=== PATIENT | female | born 1960 | race Caucasian/White ===

== ENCOUNTER → 2016-06-01 | Outpatient (CLI) | payer BC ==
[2016-06-01 10:26] LABS: Blood Urea Nitrogen 11 mg/dL (7-17); Non-African American GFR(MDRD) >60 (>60 ml/min/1.73 sqM)
--- NOTE | 2016-06-01 11:21 | CT ---
EXAMINATION TYPE: CT abdomen w con DATE OF EXAM: 06/01/2016 11:00 AM COMPARISON: Outside study from 02/21/2016 HISTORY: pancreatic CA CT DLP: 873 mGycm CONTRAST: CT scan of the abdomen is performed with Oral Contrast and with IV Contrast, patient injected with 1 00 ml mL of Omnipaque 300. FINDINGS: LUNG BASES-: No visible nodule. No infiltrate. Small hiatal hernia detected. LIVER/GB: No calcified gallstones. No space occupying hepatic lesion. Biliary tree is of normal ca liber. There is evidence for fatty liver. PANCREAS: There is continued fullness in the region of the pancreatic head and decreased attenuation relative to the remainder of the pancreas. Distinct mass is difficult to elucidate . However. Overall there is no change relative to the prior study. Pancreatic duct measures approximately 3 mm. Vascula r structures are stable. Diminutive SMV. SPLEEN: There is splenomegaly with craniocaudal measurement of 14.7 cm. No lesion seen. ADRENALS: No nodule. No thickening. KIDNEYS/BLADDER: No hydronephrosis. No nephrolithiasis. No disctinct renal mass. BOWEL: Normal appendix. Normal bowel caliber. No inflammation. LYMPH NODES: No greater than 1cm abdominal or pelvic lymph nodes are appreciated. AORTA: No significant abnormality. OSSEOUS STRUCTURES: No significant abnormality is seen. OTHER: No significant additional abnormality is seen. IMPRESSION: 1. Continued fullness and vague decreased attenuation pancreatic head with distinct mass is difficult to elucidate. Consider dedicated MRI of the pancreas for improved characterization. 2. Splenomegaly. 3. Hepatic steatosis.
== END | disposition home or self-care (01) ==
LOC: RADPROMAIN 09:53
PROVIDERS: ATTEND Internal Medicine Hematology & Oncology
DX: C25.0 Malignant neoplasm of head of pancreas (principal); K76.0 Fatty (change of) liver, not elsewhere classified; R16.1 Splenomegaly, not elsewhere classified
CPT/HCPCS: 82565; 84520; 74160; Q9967

== ENCOUNTER → 2016-07-26 | Outpatient (CLI) | payer BC ==
--- NOTE | 2016-07-27 17:02 | MR ---
MRI liver with and without contrast HISTORY: Pancreatic carcinoma Multiplanar multisequence and postcontrast images obtained through the liver following 13 cc MultiHan ce IV. Exam correlated to prior MRCP 10 August 2015, CT abdomen third May 2016 Loss of signal on out of phase imaging within the liver is compatible with fatty infiltration, the li emeka is enlarged as on previous exam. There is liver is enlarged. There is a geographical area in the periportal location, medial aspect of the inferior right lobe of the liver measuring approximately 2. 1 cm which shows less of a drop of signal than the remainder of the liver. There is no abnormal enhan cement following contrast administration. The area becomes less conspicuous on more delayed imaging f ollowing contrast administration. Vessels course through this region without apparent mass effect. The spleen is enlarged. Patient's pancreatic mass is not well seen, there is ductal dilatation distal to the region of previously identified tumor however, an indirect evidence of patient's tumor. The portal vein is patent. Low signal focus within the right lobe of the liver is a stable finding. The adrenal glands and kidneys are normal. Gallbladder is unremarkable. No retroperitoneal adenopathy . Aorta shows normal signal in diameter. No pleural effusions are ascites. There may be a small hiata l hernia. IMPRESSION: Findings within the right lobe of the liver thought likely to represent focal fatty spari ng rather than metastasis. Short interval follow-up could be performed to assess for stability or alt ernatively Eovist contrast enhanced MRI may be of benefit.
== END | disposition home or self-care (01) ==
LOC: RADMRIMAIN 17:53
PROVIDERS: ATTEND Internal Medicine Hematology & Oncology
DX: C25.0 Malignant neoplasm of head of pancreas (principal)
CPT/HCPCS: 74183; A9577

== ENCOUNTER 2017-04-15 09:15 | Day surgery (SDC) | payer BC ==
[2017-04-15 08:01] VITALS: BMI 27.4
[~2017-04-15 09:15] MED LIST: HEPARIN SODIUM,PORCINE 5,000 UNIT/ML 1 ML VIAL SQ ONE; ceFAZolin IN SWFI 2 GM/20 ML SYRINGE IVP ONE
[2017-04-15] MEDS ORDERED: SCOPOLAMINE 1.5MG/72HR PATCH TRANSDERM ONE (10:06)
[2017-04-15] MEDS ORDERED: LIDOCAINE 1% 20 ML VIAL (10MG/ML) FOR IV START INTRADERMA PRN (10:06)
[2017-04-15] MEDS ORDERED: DEXAMETHASONE SOD PHOSPHATE 10 MG/ML 1 ML VIAL IV ONE (10:06)
[2017-04-15] MEDS ORDERED: HYDROmorphone 1 MG/ML 1 ML SYRINGE IVP PRN (10:06)
[2017-04-15] MEDS ORDERED: ALPRAZolam 0.5 MG TAB PO PRN (10:06)
[2017-04-15] MEDS ORDERED: ONDANSETRON 4 MG/2 ML VIAL IVP ONE (10:06)
[2017-04-15] MEDS ORDERED: LACTATED RINGERS 1,000 ML IV SCH (10:15)
--- NOTE | 2017-04-15 10:21 | P.GSHP ---
History of Present Illness H&P Date: 04/15/17 Chief Complaint: History of pancreatic cancer [employer] 57-year-old female referred from Dr. David Douglas. Patient has a history of pancreatic cancer. Patient has a right subclavian Port-A-Cath. There has been question of infection of the Port-A-Cath. She's had some skin breakdown around the Port-A-Cath. She presents today for removal of Port-A- Cath and insertion of a new Port-A-Cath. Past Medical History Past Medical History: Cancer, COPD, Diabetes Mellitus, GERD/Reflux Additional Past Medical History / Comment(s): anxiety, Pancreatic Cancer- F5U chemo every other week Sat-Sat via port-a-cath, diabetes as a result of CA diagnosis History of Any Multi-Drug Resistant Organisms: None Reported Past Surgical History: Section Additional Past Surgical History / Comment(s): port- a cath -Right upper chest, placed 2015, recent infection, not functioning properly. Past Anesthesia/Blood Transfusion Reactions: No Reported Reaction Past Psychological History: Anxiety Smoking Status: Former smoker Past Alcohol Use History: Occasional Past Drug Use History: None Reported - Past Family History Father Family Medical History: Dementia Mother Family Medical History: Cancer, COPD, Thyroid Disorder Additional Family Medical History / Comment(s): colon ca Medications and Allergies Home Medications Medication Instructions Recorded Confirmed Type ALPRAZolam [Xanax] 0.5 mg PO Q8HR PRN 05/05/15 04/15/17 History Albuterol Sulfate [Proair Hfa] 1 - 2 puff INHALATION RT-Q6H PRN 05/05/15 History Tiotropium 18 Mcg/Puff [Spiriva] 1 cap INHALATION RT-DAILY 05/05/15 04/15/17 History Mometasone/Formoterol [Dulera 200 2 puff INHALATION DAILY 05/06/15 04/15/17 History Mcg/5 Mcg Inhaler] Omeprazole [PriLOSEC] 40 mg PO HS 05/06/15 04/15/17 History Enoxaparin [Lovenox] 120 mg SQ DAILY 04/15/17 04/15/17 History Glimepiride [Amaryl] 2 mg PO BID 04/15/17 04/15/17 History LORazepam [Ativan] 1 mg PO TID BETWEEN MEALS PRN 04/15/17 04/15/17 History Ondansetron HCl [Zofran] 8 mg PO TID PRN 04/15/17 04/15/17 History metFORMIN HCL 1,000 mg PO BID 04/15/17 04/15/17 History Allergies Allergy/AdvReac Type Severity Reaction Status Date / Time quinine Allergy Vomiting Verified 04/15/17 09:47 Surgical - Exam - General well developed, no distress - Eyes PERRL - ENT normal pinna - Neck no masses - Respiratory right subclavian Port-A-Cath with breakdown of the dermis over the Port-A-Cath. normal expansion - Cardiovascular Rhythm: regular - Abdomen Abdomen: soft, non tender Assessment and Plan Assessment: 3. Chronic cancer. We'll perform removal and replacement of Port-A-Cath.
[2017-04-15] MEDS ORDERED: MIDAZOLAM 2 MG/2 ML VIAL IV ONE (10:22)
[2017-04-15 10:24] VITALS: RESP 16; TEMP 97.5
[2017-04-15] MEDS ORDERED: INSULIN ASPART 100 UNIT/ML 1 ML 10 ML VIAL SQ ONE (10:26)
[2017-04-15 10:27] LABS: Glucose,Whole Blood 206 mg/dL (75-99)
[2017-04-15] MEDS ORDERED: PROPOFOL 10 MG/ML 20 ML VIAL IV ONE (10:43)
[2017-04-15] MEDS ORDERED: KETAMINE 10 MG/ML 20 ML VIAL ONE (10:43)
[2017-04-15] MEDS ORDERED: MIDAZOLAM 2 MG/2 ML VIAL ONE (10:43)
[2017-04-15] MEDS ORDERED: fentaNYL (PF) 50 MCG/ML 2 ML AMP ONE (10:43)
[2017-04-15] MEDS ORDERED: SODIUM CHLORIDE 0.9% 50 ML with ceFAZolin 2,000 MG IV ONE ×2 (10:43)
[2017-04-15] MEDS ORDERED: BUPIVACAINE-EPI 0.5%-1:200,000 10 ML VIAL SQ ONE (11:07)
[2017-04-15] MEDS ORDERED: IOHEXOL 180 MG/ML 1 ML ML MISCELLANE ONE ×3 (11:07)
--- NOTE | 2017-04-15 11:35 | FL ---
EXAMINATION TYPE: FL guided central line placemt HISTORY: Fluoroscopy time Impression: 1. Fluoroscopy support provided to the referring physician. Approximately 9 seconds of fluoroscopy pr ovided..
[2017-04-15] MEDS ORDERED: KETOROLAC 30 MG/ML 1 ML VIAL IVP ONE (11:41)
--- NOTE | 2017-04-15 11:49 | XR ---
EXAMINATION TYPE: XR chest 1V DATE OF EXAM: 04/15/2017 COMPARISON: 03/15/2017 HISTORY: Port-A-Cath insertion TECHNIQUE: Single frontal view of the chest is obtained. FINDINGS: Left-sided Port-A-Cath seen with the tip overlying the SVC and no sizable pneumothorax. Biapical pleural thickening. Heart size stable. No consolidation or pleural effusion. Atherosclerotic change aorta. IMPRESSION: Tip of the Mediport at the SVC with no sizable pneumothorax.
[2017-04-15 12:12] VITALS: BP 111/78; PULSE 78
--- NOTE | 2017-05-16 11:18 | P.OP ---
Date of Procedure: 04/15/17 Preoperative Diagnosis: Pancreatic cancer Postoperative Diagnosis: Pancreatic cancer Procedure(s) Performed: Removal and replacement of Port-A-Cath Anesthesia: MAC Surgeon: Vern Hernández Estimated Blood Loss (ml): 5 Pathology: none sent Condition: stable Disposition: PACU Description of Procedure: PROCEDURE: The patient was placed on the operating table in the supine position. She received MAC anesthetic. The chest was prepped and draped in the usual sterile fashion. The skin underneath the left clavicle was anesthetized with 1% Xylocaine and using Seldinger technique, the right subclavian vein was cannulized. The wire was placed through the needle and positioned under fluoroscopy. Next, the needle was removed and the port site was anesthetized with 1% Xylocaine. Skin was incised with #15 blade and port pocket was made using blunt and sharp dissection. Following this the catheter was attached to the sport and the port was flushed. The port was positioned into the pocket site and was secured with 3-0 Vicryl suture. The catheter was then brought out through the wire site and then the dilator sheath was placed over the wire and the dilator and the wire were removed. The catheter was placed through the sheath and the sheath was removed. The port was flushed with hep-lock solution. Skin was closed with interrupted 3-0 Vicryl sutures. Next the previous right subclavian Port-A-Cath was withdrawn. The skin was incised and the port was dissected free. The wound was examined for bleeding. There is no bleeding seen. Steri-Strips were applied. The patient tolerated the procedure well. The patient was sent to recovery room for chest x-ray after the procedure.
== END 2017-04-15 11:00 | disposition home or self-care (01) ==
LOC: OR 09:15
PROVIDERS: ATTEND Surgery
DX: T82.898A Other specified complication of vascular prosthetic devices, implants and grafts, initial encounter (principal); C25.9 Malignant neoplasm of pancreas, unspecified; Z87.891 Personal history of nicotine dependence; F41.9 Anxiety disorder, unspecified; J44.9 Chronic obstructive pulmonary disease, unspecified; E11.9 Type 2 diabetes mellitus without complications; Z79.84 Long term (current) use of oral hypoglycemic drugs
CPT/HCPCS: 77001; 71010; 36590; 36571; C1788; J2250; J1644; J1100; Q9965; J2405; J3010; J1885; J1642; J0690; J2704

== ENCOUNTER 2017-11-15 10:25 | Inpatient (IN) | payer BC ==
--- NOTE | 2017-11-15 11:23 | ED ---
General Adult HPI - General Chief complaint: Recheck/Abnormal Lab/Rx Stated complaint: Abnormal Labs Time Seen by Provider: 11/15/17 10:44 Source: patient, RN notes reviewed Mode of arrival: wheelchair Limitations: no limitations - History of Present Illness Initial comments: Patient is a pleasant 57-year-old female presenting to the emergency Department with low hemoglobin and rectal bleeding. Patient was advised come the emergency department from Dr. Puente's office. Patient states she did have dark diarrhea a week or 2 ago. Patient has had bloody stool since yesterday. Patient did have her blood level checked at 5.9 6.2. Patient does admit to being fatigued and lightheaded. Patient does have history of pancreatic cancer and recently finished chemotherapy and radiation. - Related Data Home Medications Medication Instructions Recorded Confirmed ALPRAZolam [Xanax] 0.5 mg PO Q8HR PRN 05/05/15 11/15/17 Albuterol Sulfate [Proair Hfa] 1 - 2 puff INHALATION RT-Q6H PRN 05/05/15 Tiotropium 18 Mcg/Puff [Spiriva] 1 cap INHALATION RT-DAILY 05/05/15 11/15/17 Mometasone/Formoterol [Dulera 200 2 puff INHALATION RT-DAILY 05/06/15 11/15/17 Mcg/5 Mcg Inhaler] Omeprazole [PriLOSEC] 40 mg PO HS 05/06/15 11/15/17 Enoxaparin [Lovenox] 120 mg SQ DAILY 04/15/17 11/15/17 Glimepiride [Amaryl] 2 mg PO BID 04/15/17 11/15/17 LORazepam [Ativan] 1 mg PO TID BETWEEN MEALS PRN 04/15/17 11/15/17 Ondansetron HCl [Zofran] 8 mg PO TID PRN 04/15/17 11/15/17 metFORMIN HCL 1,000 mg PO BID 04/15/17 11/15/17 HYDROcodone/APAP 7.5-325MG [[place] 1 tab PO Q6H PRN 11/15/17 11/15/17 7.5] Latanoprost Ophth [Xalatan 0.005%] 1 drops BOTH EYES 11/15/17 11/15/17 Allergies Allergy/AdvReac Type Severity Reaction Status Date / Time quinine Allergy Vomiting Verified 11/15/17 11:04 Review of Systems ROS Statement: Those systems with pertinent positive or pertinent negative responses have been documented in the HPI. ROS Other: All systems not noted in ROS Statement are negative. Constitutional: Denies: fever Eyes: Denies: eye pain ENT: Denies: ear pain Respiratory: Denies: cough Cardiovascular: Denies: chest pain Endocrine: Reports: fatigue Gastrointestinal: Reports: abdominal pain (Chronic), hematochezia Genitourinary: Denies: dysuria Musculoskeletal: Denies: back pain Skin: Denies: rash Neurological: Denies: headache Past Medical History Past Medical History: Cancer, COPD, Diabetes Mellitus, GERD/Reflux Additional Past Medical History / Comment(s): anxiety, Pancreatic Cancer, port-a -cath, diabetes as a result of CA diagnosis History of Any Multi-Drug Resistant Organisms: None Reported Past Surgical History: Section Additional Past Surgical History / Comment(s): port- a cath -Right upper chest, placed 2015, recent infection, not functioning properly. Past Anesthesia/Blood Transfusion Reactions: No Reported Reaction Past Psychological History: Anxiety Smoking Status: Former smoker Past Alcohol Use History: Occasional Past Drug Use History: None Reported - Past Family History Father Family Medical History: Dementia Mother Family Medical History: Cancer, COPD, Thyroid Disorder Additional Family Medical History / Comment(s): colon ca General Exam Limitations: no limitations General appearance: alert, in no apparent distress Head exam: Present: atraumatic Eye exam: Present: PERRL, other (Pale conjunctival) ENT exam: Present: normal oropharynx Neck exam: Present: normal inspection Respiratory exam: Present: normal lung sounds bilaterally Cardiovascular Exam: Present: regular rate, normal rhythm GI/Abdominal exam: Present: soft, distended (Abdomen mildly distended), tenderness (Mild diffuse tenderness.) Rectal exam: Present: normal inspection Extremities exam: Present: normal inspection Neurological exam: Present: alert Psychiatric exam: Present: normal affect, normal mood Skin exam: Present: normal color Course Vital Signs 11/15/17 11/15/17 10:33 11:46 Temperature 97.9 F Pulse Rate 95 91 Respiratory 18 18 Rate Blood Pressure 93/64 97/69 O2 Sat by Pulse 100 100 Oximetry Medical Decision Making - Medical Decision Making Patient reevaluated and resting comfortably in bed. Dr. Desouza has been paged for admission. Patient was updated on results and plan. - Lab Data Result diagrams: 11/15/17 10:58 11/15/17 10:58 Lab Results 11/15/17 11/15/17 11/15/17 Range/Units 10:58 10:58 10:58 WBC 2.4 L (3.8-10.6) k/uL RBC 2.33 L (3.80-5.40) m/uL Hgb 6.1 L* (11.4-16.0) gm/dL Hct 19.6 L* (34.0-46.0) % MCV 83.8 (80.0-100.0) fL MCH 26.1 (25.0-35.0) pg MCHC 31.1 (31.0-37.0) g/dL RDW 19.0 H (11.5-15.5) % Plt Count 132 L (150-450) k/uL Neutrophils % 67 % Lymphocytes % 21 % Monocytes % 6 % Eosinophils % 2 % Basophils % 1 % Neutrophils # 1.6 (1.3-7.7) k/uL Lymphocytes # 0.5 L (1.0-4.8) k/uL Monocytes # 0.1 (0-1.0) k/uL Eosinophils # 0.0 (0-0.7) k/uL Basophils # 0.0 (0-0.2) k/uL Hypochromasia Moderate Poikilocytosis Slight Anisocytosis Slight Microcytosis Slight Sodium 134 L (137-145) mmol/L Potassium 3.5 (3.5-5.1) mmol/L Chloride 103 (98-107) mmol/L Carbon Dioxide 23 (22-30) mmol/L Anion Gap 8 mmol/L BUN 12 (7-17) mg/dL Creatinine 0.64 (0.52-1.04) mg/dL Est GFR (CKD-EPI)AfAm >90 (>60 ml/min/1.73 sqM) Est GFR (CKD-EPI)NonAf >90 (>60 ml/min/1.73 sqM) Glucose 194 H (74-99) mg/dL Calcium 7.8 L (8.4-10.2) mg/dL Total Bilirubin 0.1 L (0.2-1.3) mg/dL AST 32 (14-36) U/L ALT 51 (9-52) U/L Alkaline Phosphatase 88 (38-126) U/L Total Protein 5.7 L (6.3-8.2) g/dL Albumin 3.3 L (3.5-5.0) g/dL Stool Occult Blood Positive H (Negative) Critical Care Time Critical Care Time: Yes Total Critical Care Time: 34 Disposition Clinical Impression: GI hemorrhage Disposition: ADMITTED IP TO THIS HOSP Is patient prescribed a controlled substance at d/c from ED?: No Referrals: David Desouza DO [Primary Care Provider] - 1-2 days Decision Time: 12:58
[2017-11-15] MEDS ORDERED: SODIUM CHLORIDE 0.9% 1,000 ML IV STA (11:28)
[2017-11-15] MEDS ORDERED: PANTOPRAZOLE 40 MG/10 ML VIAL IVP STA (11:28)
[2017-11-15 11:52] LABS: ALT 51 U/L (9-52); AST 32 U/L (14-36); Albumin 3.3 g/dL (3.5-5.0); Alkaline Phosphatase 88 U/L (38-126); Anion Gap 8 mmol/L; Blood Urea Nitrogen 12 mg/dL (7-17); Calcium 7.8 mg/dL (8.4-10.2); Carbon Dioxide 23 mmol/L (22-30); Chloride 103 mmol/L (98-107); Glucose 194 mg/dL (74-99); Potassium 3.5 mmol/L (3.5-5.1); Sodium 134 mmol/L (137-145); Total Bilirubin 0.1 mg/dL (0.2-1.3); Total Protein 5.7 g/dL (6.3-8.2)
[2017-11-15 12:09] LABS: Anisocytosis Slight; Basophils % (A) 1 %; Eosinophils % (A) 2 %; Hypochromasia Moderate; Lymphocytes # (A) 0.5 k/uL (1.0-4.8); Lymphocytes % (A) 21 %; MCH 26.1 pg (25.0-35.0); MCHC 31.1 g/dL (31.0-37.0); MCV 83.8 fL (80.0-100.0); Mean Platelet Volume 7.6; Microcytosis Slight; Monocytes # (A) 0.1 k/uL (0-1.0); Monocytes % (A) 6 %; Neutrophils # (A) 1.6 k/uL (1.3-7.7); Neutrophils % (A) 67 %; Platelet Count 132 k/uL (150-450); Poikilocytosis Slight; RBC 2.33 m/uL (3.80-5.40); WBC 2.4 k/uL (3.8-10.6)
[2017-11-15 12:11] LABS: HGB 6.1 gm/dL (11.4-16.0)
[2017-11-15 12:12] LABS: HCT 19.6 % (34.0-46.0)
[2017-11-15 12:26] LABS: INR 1.3 (<1.2); Prothrombin Time 12.3 sec (9.0-12.0)
[2017-11-15] MEDS ORDERED: IOPAMIDOL-300 CONTRAST 30 ML VIAL (ORAL USE) PO PRN (12:56)
[2017-11-15] MEDS ORDERED: NALOXONE 0.4 MG/ML 1 ML VIAL IV PRN (12:58)
--- NOTE | 2017-11-15 15:55 | CT ---
EXAMINATION TYPE: CT abdomen pelvis w con DATE OF EXAM: 11/15/2017 HISTORY: Weakness, dizziness and blood in stool. History of pancreatic cancer. CT DLP: 708.6mGycm Automated Exposure Control for Dose Reduction was Utilized. CONTRAST: CT scan of the abdomen and pelvis is performed with IV Contrast, patient injected with 100 mL of Isov ue M300. COMPARISON: CT abdomen June 01, 2016. Liver MRI of July 26, 2016 FINDINGS: LUNG BASES: No significant abnormality is appreciated. LIVER/GB: Liver is markedly low dense consistent with fatty infiltration. New area of nonmass enhance ment centrally in the gallbladder fossa and interlobar fissure appears to show normal hepatic arteria l vessels transversing, I suspect transient hepatic attenuation difference near axial image 28. No si gnificant change on delayed phased images. Tiny dependent calculi are suspected coronal image 31. No suspicious intrahepatic or extra hepatic biliary dilatation is noted. PANCREAS: Distal body and tail of pancreas are not identified and presumed surgically absent. There i s some heterogeneous enhancement of remainder pancreas particularly near head slightly more prominent than prior study. Correlate for acute pancreatitis. Duct is visualized but felt upper limits of norm al not significantly changed from prior. SPLEEN: No significant abnormality is seen. ADRENALS: No significant abnormality is seen. KIDNEYS: Probable 2 mm calculus lower pole level left kidney coronal image 69 redemonstrated felt sta ble. BOWEL: Oral contrast reaches level of hepatic flexure. There is no suspicious small or large bowel di latation. Normal-appearing appendix is seen ascending from cecum. There is mild wall thickening in th e proximal transverse colon. There are diverticula on the left and sigmoid colon. There is no convinc ing evidence for acute diverticulitis. Mild wall thickening in the duodenal sweep is present UTERUS/ADNEXA: Slightly retroverted uterus is seen. LYMPH NODES: No greater than 1cm abdominal or pelvic lymph nodes are appreciated. OSSEOUS STRUCTURES: Multilevel facet arthropathy mid to lower lumbar spine. Mild disc space narrowing and spurring L5-S1 level OTHER: There is mild fat stranding ill-defined fluid in the right mid to lower posterior abdomen near axial image 43. Mild calcified plaque distal abdominal aorta . Tortuous vessels inferior to SMA near axial image 36 a re redemonstrated with patency not significantly changed from prior. IMPRESSION: 1. Possible new mild colitis proximal transverse colon. Correlate clinically. 2. Possible new mild acute pancreatitis with adjacent duodenitis. Correlate clinically and with pancr eatic liver enzymes. 3. Inflammation right midabdomen posteriorly uncertain etiology may be related to mild acute pancreat itis.
[2017-11-15 16:41] LABS: Glucose,Whole Blood 118 mg/dL (75-99)
[2017-11-15] MEDS ORDERED: ONDANSETRON 4 MG TAB PO PRN (18:12)
[2017-11-15] MEDS ORDERED: ALPRAZolam 0.5 MG TAB PO PRN (18:12)
[2017-11-15] MEDS ORDERED: HYDROcodone/APAP 7.5-325MG 1 EACH TAB PO PRN (18:12)
[2017-11-15] MEDS ORDERED: ALBUTEROL NEBULIZED 2.5 MG/3 ML INHALATION PRN (18:12)
[2017-11-15 20:38] LABS: Glucose,Whole Blood 137 mg/dL (75-99)
[2017-11-15] MEDS ORDERED: LATANOPROST 0.005% OPHTH DROPS 2.5 ML BTL BOTH EYES SCH (21:00)
[2017-11-15] MEDS ORDERED: NON-FORMULARY DRUG (Omeprazole [Prilosec] 40 MG) PO SCH (21:00)
[2017-11-15] MEDS: SYMBICORT 160-4.5 MCG INHALER INHALATION SCH (21:07)
[2017-11-15 21:14] VITALS: RESP 16
[2017-11-15] MEDS: SODIUM CHLORIDE 0.9% 1,000 ML IV SCH ×2 (21:47→23:56)
[2017-11-15] MEDS: INSULIN ASPART 100 UNIT/ML 1 ML 10 ML VIAL SQ SCH (21:49)
[2017-11-15] MEDS: GLIMEPIRIDE 2 MG TAB PO SCH (21:54)
[2017-11-16 06:24] LABS: Glucose,Whole Blood 164 mg/dL (75-99)
[2017-11-16] MEDS: INSULIN ASPART 100 UNIT/ML 1 ML 10 ML VIAL SQ SCH ×3 (06:35→17:38)
[2017-11-16] MEDS: GLIMEPIRIDE 2 MG TAB PO SCH ×2 (06:36→17:39)
[2017-11-16 07:02] LABS: Anisocytosis Slight; Basophils % (A) 0 %; Eosinophils % (A) 2 %; HCT 24.9 % (34.0-46.0); Hypochromasia Slight; Lymphocytes # (A) 0.3 k/uL (1.0-4.8); Lymphocytes % (A) 17 %; MCH 27.4 pg (25.0-35.0); MCHC 32.1 g/dL (31.0-37.0); MCV 85.4 fL (80.0-100.0); Mean Platelet Volume 7.2; Monocytes # (A) 0.1 k/uL (0-1.0); Monocytes % (A) 7 %; Neutrophils # (A) 1.4 k/uL (1.3-7.7); Neutrophils % (A) 71 %; Platelet Count 114 k/uL (150-450); Poikilocytosis Moderate; RBC 2.92 m/uL (3.80-5.40); RDW 17.4 % (11.5-15.5)
[2017-11-16 07:07] LABS: WBC 1.9 k/uL (3.8-10.6)
[2017-11-16 08:35] LABS: Anion Gap 4 mmol/L; Carbon Dioxide 27 mmol/L (22-30); Chloride 108 mmol/L (98-107); Glucose 144 mg/dL (74-99); Potassium 3.5 mmol/L (3.5-5.1); Sodium 139 mmol/L (137-145)
[2017-11-16 08:36] LABS: Blood Urea Nitrogen 8 mg/dL (7-17); Calcium 7.6 mg/dL (8.4-10.2)
[2017-11-16] MEDS ORDERED: PANTOPRAZOLE 40 MG/10 ML VIAL IV SCH (09:00)
[2017-11-16] MEDS: IPRATROPIUM 0.5 MG/2.5 ML NEBU INHALATION SCH ×3 (09:03→15:34)
[2017-11-16] MEDS: SYMBICORT 160-4.5 MCG INHALER INHALATION SCH (09:03)
--- NOTE | 2017-11-16 09:56 | P.GSCN ---
History of Present Illness Consult date: 11/16/17 Reason for Consult: GI bleed History of present illness: This a 57-year-old female with a history of pancreatic cancer. The patient states she had some bloody diarrhea. Patient CAT scan performed on admission which shows evidence of transverse colitis and possible mild pancreatitis. Patient states that she's had no further bleeding. Patient states that she wishes to be discharged from the hospital because of her animal pets at home and that she has an appointment at [facility] regarding a potential investigational trial therapy. Past Medical History Past Medical History: Cancer, COPD, Diabetes Mellitus, GERD/Reflux Additional Past Medical History / Comment(s): anxiety, Pancreatic Cancer, port-a -cath, diabetes as a result of CA diagnosis, glucoma, RADIATION AND CHEMO COMPLETED 07/29/17 History of Any Multi-Drug Resistant Organisms: None Reported Past Surgical History: Section Additional Past Surgical History / Comment(s): port- a cath -Right upper chest, placed 2015, recent infection, not functioning properly. Past Anesthesia/Blood Transfusion Reactions: No Reported Reaction Past Psychological History: Anxiety Smoking Status: Former smoker Past Alcohol Use History: Occasional Past Drug Use History: None Reported - Past Family History Father Family Medical History: Dementia Mother Family Medical History: Cancer, COPD, Thyroid Disorder Additional Family Medical History / Comment(s): colon ca Medications and Allergies Home Medications Medication Instructions Recorded Confirmed Type ALPRAZolam [Xanax] 0.5 mg PO Q8HR PRN 05/05/15 11/15/17 History Albuterol Sulfate [Proair Hfa] 1 - 2 puff INHALATION RT-Q6H PRN 05/05/15 History Tiotropium 18 Mcg/Puff [Spiriva] 1 cap INHALATION RT-DAILY 05/05/15 11/15/17 History Mometasone/Formoterol [Dulera 200 2 puff INHALATION RT-DAILY 05/06/15 11/15/17 History Mcg/5 Mcg Inhaler] Omeprazole [PriLOSEC] 40 mg PO HS 05/06/15 11/15/17 History Enoxaparin [Lovenox] 120 mg SQ DAILY 04/15/17 11/15/17 History Glimepiride [Amaryl] 2 mg PO BID 04/15/17 11/15/17 History LORazepam [Ativan] 1 mg PO TID BETWEEN MEALS PRN 04/15/17 11/15/17 History Ondansetron HCl [Zofran] 8 mg PO TID PRN 04/15/17 11/15/17 History metFORMIN HCL 1,000 mg PO BID 04/15/17 11/15/17 History HYDROcodone/APAP 7.5-325MG [[place] 1 tab PO Q6H PRN 11/15/17 11/15/17 History 7.5] Latanoprost Ophth [Xalatan 0.005%] 1 drops BOTH EYES HS 11/15/17 11/15/17 History Allergies Allergy/AdvReac Type Severity Reaction Status Date / Time quinine Allergy Vomiting Verified 11/15/17 11:04 Surgical - Exam Vital Signs Temp Pulse Resp BP Pulse Ox 97.9 F 95 18 93/64 100 11/15/17 10:33 11/15/17 10:33 11/15/17 10:33 11/15/17 10:33 11/15/17 10:33 - General well developed, no distress - Eyes PERRL - ENT normal pinna - Neck no masses, no bruits - Respiratory normal expansion - Cardiovascular Rhythm: regular - Abdomen Mild epigastric tenderness Abdomen: soft, non tender Results - Labs 11/16/17 06:00 11/16/17 06:00 Abnormal Lab Results - Last 24 Hours (Table) 11/15/17 11/15/17 11/15/17 Range/Units 10:58 10:58 10:58 WBC 2.4 L (3.8-10.6) k/uL RBC 2.33 L (3.80-5.40) m/uL Hgb 6.1 L* (11.4-16.0) gm/dL Hct 19.6 L* (34.0-46.0) % RDW 19.0 H (11.5-15.5) % Plt Count 132 L (150-450) k/uL Lymphocytes # 0.5 L (1.0-4.8) k/uL PT (9.0-12.0) sec INR (<1.2) APTT (22.0-30.0) sec Sodium 134 L (137-145) mmol/L Chloride (98-107) mmol/L Glucose 194 H (74-99) mg/dL POC Glucose (mg/dL) (75-99) mg/dL Calcium 7.8 L (8.4-10.2) mg/dL Total Bilirubin 0.1 L (0.2-1.3) mg/dL Total Protein 5.7 L (6.3-8.2) g/dL Albumin 3.3 L (3.5-5.0) g/dL Stool Occult Blood Positive H (Negative) Crossmatch 11/15/17 11/15/17 11/15/17 Range/Units 10:58 10:58 16:35 WBC (3.8-10.6) k/uL RBC (3.80-5.40) m/uL Hgb (11.4-16.0) gm/dL Hct (34.0-46.0) % RDW (11.5-15.5) % Plt Count (150-450) k/uL Lymphocytes # (1.0-4.8) k/uL PT 12.3 H (9.0-12.0) sec INR 1.3 H (<1.2) APTT 67.0 H (22.0-30.0) sec Sodium (137-145) mmol/L Chloride (98-107) mmol/L Glucose (74-99) mg/dL POC Glucose (mg/dL) 118 H (75-99) mg/dL Calcium (8.4-10.2) mg/dL Total Bilirubin (0.2-1.3) mg/dL Total Protein (6.3-8.2) g/dL Albumin (3.5-5.0) g/dL Stool Occult Blood (Negative) Crossmatch See Detail 11/15/17 11/16/17 11/16/17 Range/Units 20:33 06:00 06:00 WBC 1.9 L* (3.8-10.6) k/uL RBC 2.92 L (3.80-5.40) m/uL Hgb 8.0 L D (11.4-16.0) gm/dL Hct 24.9 L (34.0-46.0) % RDW 17.4 H (11.5-15.5) % Plt Count 114 L (150-450) k/uL Lymphocytes # 0.3 L (1.0-4.8) k/uL PT (9.0-12.0) sec INR (<1.2) APTT (22.0-30.0) sec Sodium (137-145) mmol/L Chloride 108 H (98-107) mmol/L Glucose 144 H (74-99) mg/dL POC Glucose (mg/dL) 137 H (75-99) mg/dL Calcium 7.6 L (8.4-10.2) mg/dL Total Bilirubin (0.2-1.3) mg/dL Total Protein (6.3-8.2) g/dL Albumin (3.5-5.0) g/dL Stool Occult Blood (Negative) Crossmatch 11/16/17 Range/Units 06:22 WBC (3.8-10.6) k/uL RBC (3.80-5.40) m/uL Hgb (11.4-16.0) gm/dL Hct (34.0-46.0) % RDW (11.5-15.5) % Plt Count (150-450) k/uL Lymphocytes # (1.0-4.8) k/uL PT (9.0-12.0) sec INR (<1.2) APTT (22.0-30.0) sec Sodium (137-145) mmol/L Chloride (98-107) mmol/L Glucose (74-99) mg/dL POC Glucose (mg/dL) 164 H (75-99) mg/dL Calcium (8.4-10.2) mg/dL Total Bilirubin (0.2-1.3) mg/dL Total Protein (6.3-8.2) g/dL Albumin (3.5-5.0) g/dL Stool Occult Blood (Negative) Crossmatch Diabetes panel 11/15/17 11/16/17 Range/Units 10:58 06:00 Sodium 134 L 139 (137-145) mmol/L Potassium 3.5 3.5 (3.5-5.1) mmol/L Chloride 103 108 H (98-107) mmol/L Carbon Dioxide 23 27 (22-30) mmol/L BUN 12 8 (7-17) mg/dL Creatinine 0.64 0.71 (0.52-1.04) mg/dL Glucose 194 H 144 H (74-99) mg/dL Calcium 7.8 L 7.6 L (8.4-10.2) mg/dL AST 32 (14-36) U/L ALT 51 (9-52) U/L Alkaline Phosphatase 88 (38-126) U/L Total Protein 5.7 L (6.3-8.2) g/dL Albumin 3.3 L (3.5-5.0) g/dL Calcium panel 11/15/17 11/16/17 Range/Units 10:58 06:00 Calcium 7.8 L 7.6 L (8.4-10.2) mg/dL Albumin 3.3 L (3.5-5.0) g/dL Pituitary panel 11/15/17 11/16/17 Range/Units 10:58 06:00 Sodium 134 L 139 (137-145) mmol/L Potassium 3.5 3.5 (3.5-5.1) mmol/L Chloride 103 108 H (98-107) mmol/L Carbon Dioxide 23 27 (22-30) mmol/L BUN 12 8 (7-17) mg/dL Creatinine 0.64 0.71 (0.52-1.04) mg/dL Glucose 194 H 144 H (74-99) mg/dL Calcium 7.8 L 7.6 L (8.4-10.2) mg/dL Adrenal panel 11/15/17 11/16/17 Range/Units 10:58 06:00 Sodium 134 L 139 (137-145) mmol/L Potassium 3.5 3.5 (3.5-5.1) mmol/L Chloride 103 108 H (98-107) mmol/L Carbon Dioxide 23 27 (22-30) mmol/L BUN 12 8 (7-17) mg/dL Creatinine 0.64 0.71 (0.52-1.04) mg/dL Glucose 194 H 144 H (74-99) mg/dL Calcium 7.8 L 7.6 L (8.4-10.2) mg/dL Total Bilirubin 0.1 L (0.2-1.3) mg/dL AST 32 (14-36) U/L ALT 51 (9-52) U/L Alkaline Phosphatase 88 (38-126) U/L Total Protein 5.7 L (6.3-8.2) g/dL Albumin 3.3 L (3.5-5.0) g/dL Assessment and Plan Assessment: GI bleed most likely due to transverse colitis. This may be related to pink ties. The patient will have her pancreatic enzymes drawn. Patient requesting food. We will feed her. She is not active bleeding.
[2017-11-16] MEDS: SODIUM CHLORIDE 0.9% 1,000 ML IV SCH (10:04)
[2017-11-16 11:34] LABS: Glucose,Whole Blood 186 mg/dL (75-99)
[2017-11-16 12:37] LABS: Hemoglobin A1C 7.5 % (4.0-6.0)
--- NOTE | 2017-11-16 13:54 | P.HPIM ---
History of Present Illness Patient is a pleasant 57-year-old female with known history of pancreatic cancer recently completed chemo and radiation therapy came in with the complaints of couple episodes of her blood in the stools. Patient had 1 episode of diarrhea and questionable blood in the. Patient recently completed antibiotic therapy for urinary tract infection. 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 Patient is wishing to go home patient received 2 units of blood transfusion after which her hemoglobin went up from 6.1-8.0 patient was lightheaded yesterday which resolved at this point of time patient's sodium was low at 134 which has gone up as well. doesn't take any nonsteroidal anti- inflammatory medications at this time. Patient is requesting to go home. If patient doesn't have any dark stools or blood in the stools probably can go home later today in the evening. Ideally patient is preferred to be monitored until tomorrow morning for any continued GI bleed. Patient will follow-up with the her oncologist when she is discharged from the hospital. Further workup for anemia including iron deficiency anemia can be done as an outpatient. Review of Systems REVIEW OF SYSTEMS: CONSTITUTIONAL: No fever, no malaise, no fatigue. HEENT: No recent visual problems or hearing problems. Denied any sore throat. CARDIOVASCULAR: No chest pain, orthopnea, PND, no palpitations, no syncope. PULMONARY: No shortness of breath, no cough, no hemoptysis. GASTROINTESTINAL: As mentioned in HPI NEUROLOGICAL: No headaches, no weakness, no numbness. HEMATOLOGICAL: Denies any bleeding or petechiae. GENITOURINARY: Denies any burning micturition, frequency, or urgency. MUSCULOSKELETAL/RHEUMATOLOGICAL: Denies any joint pain, swelling, or any muscle pain. ENDOCRINE: Denies any polyuria or polydipsia. The rest of the 14-point review of systems is negative. Past Medical History Past Medical History: Cancer, COPD, Diabetes Mellitus, GERD/Reflux Additional Past Medical History / Comment(s): anxiety, Pancreatic Cancer, port-a -cath, diabetes as a result of CA diagnosis, glucoma, RADIATION AND CHEMO COMPLETED 07/29/17 History of Any Multi-Drug Resistant Organisms: None Reported Past Surgical History: Section Additional Past Surgical History / Comment(s): port- a cath -Right upper chest, placed 2015, recent infection, not functioning properly. Past Anesthesia/Blood Transfusion Reactions: No Reported Reaction Past Psychological History: Anxiety Smoking Status: Former smoker Past Alcohol Use History: Occasional Past Drug Use History: None Reported - Past Family History Father Family Medical History: Dementia Mother Family Medical History: Cancer, COPD, Thyroid Disorder Additional Family Medical History / Comment(s): colon ca Medications and Allergies Home Medications Medication Instructions Recorded Confirmed Type ALPRAZolam [Xanax] 0.5 mg PO Q8HR PRN 05/05/15 11/15/17 History Albuterol Sulfate [Proair Hfa] 1 - 2 puff INHALATION RT-Q6H PRN 05/05/15 History Tiotropium 18 Mcg/Puff [Spiriva] 1 cap INHALATION RT-DAILY 05/05/15 11/15/17 History Mometasone/Formoterol [Dulera 200 2 puff INHALATION RT-DAILY 05/06/15 11/15/17 History Mcg/5 Mcg Inhaler] Omeprazole [PriLOSEC] 40 mg PO HS 05/06/15 11/15/17 History Enoxaparin [Lovenox] 120 mg SQ DAILY 04/15/17 11/15/17 History Glimepiride [Amaryl] 2 mg PO BID 04/15/17 11/15/17 History LORazepam [Ativan] 1 mg PO TID BETWEEN MEALS PRN 04/15/17 11/15/17 History Ondansetron HCl [Zofran] 8 mg PO TID PRN 04/15/17 11/15/17 History metFORMIN HCL 1,000 mg PO BID 04/15/17 11/15/17 History HYDROcodone/APAP 7.5-325MG [[place] 1 tab PO Q6H PRN 11/15/17 11/15/17 History 7.5] Latanoprost Ophth [Xalatan 0.005%] 1 drops BOTH EYES HS 11/15/17 11/15/17 History Allergies Allergy/AdvReac Type Severity Reaction Status Date / Time quinine Allergy Vomiting Verified 11/15/17 11:04 Physical Exam Vitals: Vital Signs Temp Pulse Pulse Resp BP BP Pulse Ox 11/16/17 11:30 90 16 121/71 99 11/16/17 08:20 97.3 F L 80 16 120/80 100 11/16/17 03:20 97.5 F L 80 16 100/60 98 11/16/17 00:13 97.2 F L 82 16 97/53 11/16/17 00:10 97.2 F L 82 16 97/53 94 L 11/15/17 21:53 97.1 F L 74 16 92/50 11/15/17 21:28 97.2 F L 84 16 94/52 11/15/17 21:27 97.4 F L 84 16 94/52 95 11/15/17 21:23 97.2 F L 84 16 94/52 11/15/17 21:13 98.2 F 84 16 99/54 11/15/17 20:15 98.2 F 84 16 99/54 96 11/15/17 20:10 98.0 F 88 18 90/55 99 11/15/17 17:38 97.5 F L 86 20 94/61 11/15/17 17:08 97.3 F L 84 20 90/66 11/15/17 16:58 97 F L 91 20 116/59 11/15/17 16:12 97 F L 91 20 116/59 100 11/15/17 15:12 83 16 101/70 98 Intake and Output 11/15/17 11/16/17 11/16/17 22:59 06:59 14:59 Intake Total 670 620 480 Balance 670 620 480 Intake: Oral 360 480 Blood Product 310 620 Rc As-1 Unit 310 [id number] Rc As-3 Unit 0 310 [id number] Other: # Voids 2 Weight 67.8 kg PHYSICAL EXAMINATION: GENERAL: The patient is alert and oriented x3, not in any acute distress. Well developed, well nourished. HEENT: Pupils are round and equally reacting to light. EOMI. No scleral icterus. Patient does have conjunctival pallor. Normocephalic, atraumatic. No pharyngeal erythema. No thyromegaly. CARDIOVASCULAR: S1 and S2 present. No murmurs, rubs, or gallops. PULMONARY: Chest is clear to auscultation, no wheezing or crackles. ABDOMEN: Soft, nontender, nondistended, normoactive bowel sounds. No palpable organomegaly. MUSCULOSKELETAL: No joint swelling or deformity. EXTREMITIES: No cyanosis, clubbing, or pedal edema. NEUROLOGICAL: Gross neurological examination did not reveal any focal deficits. SKIN: No rashes. Results CBC & Chem 7: 11/16/17 06:00 11/16/17 06:00 Labs: Abnormal Lab Results - Last 24 Hours (Table) 11/15/17 11/15/17 11/15/17 Range/Units 10:58 16:35 20:33 WBC (3.8-10.6) k/uL RBC (3.80-5.40) m/uL Hgb (11.4-16.0) gm/dL Hct (34.0-46.0) % RDW (11.5-15.5) % Plt Count (150-450) k/uL Lymphocytes # (1.0-4.8) k/uL Chloride (98-107) mmol/L Glucose (74-99) mg/dL POC Glucose (mg/dL) 118 H 137 H (75-99) mg/dL Calcium (8.4-10.2) mg/dL Crossmatch See Detail 11/16/17 11/16/17 11/16/17 Range/Units 06:00 06:00 06:22 WBC 1.9 L* (3.8-10.6) k/uL RBC 2.92 L (3.80-5.40) m/uL Hgb 8.0 L D (11.4-16.0) gm/dL Hct 24.9 L (34.0-46.0) % RDW 17.4 H (11.5-15.5) % Plt Count 114 L (150-450) k/uL Lymphocytes # 0.3 L (1.0-4.8) k/uL Chloride 108 H (98-107) mmol/L Glucose 144 H (74-99) mg/dL POC Glucose (mg/dL) 164 H (75-99) mg/dL Calcium 7.6 L (8.4-10.2) mg/dL Crossmatch 11/16/17 Range/Units 11:33 WBC (3.8-10.6) k/uL RBC (3.80-5.40) m/uL Hgb (11.4-16.0) gm/dL Hct (34.0-46.0) % RDW (11.5-15.5) % Plt Count (150-450) k/uL Lymphocytes # (1.0-4.8) k/uL Chloride (98-107) mmol/L Glucose (74-99) mg/dL POC Glucose (mg/dL) 186 H (75-99) mg/dL Calcium (8.4-10.2) mg/dL Crossmatch Thrombosis Risk Factor Assmnt - Choose All That Apply Each Factor Represents 1 point: Abnormal pulmonary function (COPD), Age 41-60 years Thrombosis Risk Factor Assessment Total Risk Factor Score: 2 Thrombosis Risk Factor Assessment Level: Low Risk Assessment and Plan Plan: -Acute lower GI bleed: Acute blood loss anemia secondary to lower GI bleed, 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 Further management as mentioned above. Patient is also on Lovenox at home. Patient was asked to hold off Lovenox because of the GI bleed since she wanted to go home patient can go home hold off Lovenox tomorrow if she doesn't have any GI bleed can start Lovenox on Saturday. Patient had history of DVT in the past she and C has active cancer she will need Lovenox. -Hyponatremia hypotonic hyponatremia improved with IV fluids. -COPD without any acute examination of time-type 2 diabetes mellitus -Gastroesophageal reflux disease -Pancreatic cancer active completed her radiation therapy and chemotherapy planning on extremity medications. -History of DVT about an year ago
[2017-11-16] MEDS ORDERED: POTASSIUM CHLORIDE ER 20 MEQ TAB.ER PO STA (14:22)
[2017-11-16 16:13] VITALS: BP 100/66; PULSE 74; TEMP 97.9
[2017-11-16 16:33] LABS: Glucose,Whole Blood 182 mg/dL (75-99)
--- NOTE | 2017-11-25 08:39 | CDI ---
Documentation Clarification Form Date: 11/25/17 From: KATARINA Sosa Phone: If you have question, contact Miriam Ching Delivery Associate at [phone] [facility] 8:30 am to 6pm Admit Date: 11/15/2017 12:58:00 PM Patient Name: Katey Monet Visit Number: [id number] Discharge Date: 11/16/17 ATTENTION: The Clinical Documentation Specialists (CDI) and [facility] Coding Staff appreciate your assistance in clarifying documentation. Please respond to the clarification below the line at the bottom and electronically sign. The CDI & [facility] Coding staff will review the response and follow-up if needed. Please note: Queries are made part of the Legal Health Record. If you have any questions, please contact the author of this message via ITS. Dr. Nicolle Rodriguez Per the consultation and CAT scan results the patient has possible mild pancreatitis. The patient was to have her pancreatic enzymes drawn. Results of this test cannot be found. Please clarify if this patient has pancreatitis. Pancreatitis ruled in Pancreatitis ruled out Clinically unable to determine Other (please specify) No pancreatitis and appropriate documentation was already dictated in HPI [facility]
--- NOTE | 2017-12-01 13:37 | P.DS ---
Providers Date of admission: 11/15/17 12:58 Attending physician: David Desouza Consults: 11/15/17 12:59 Consult Physician Urgent Consulting Provider: Vern Hernández Consult Reason/Comments: gi hemorrhage Do you want consulting provider notified?: Yes Consult Physician Urgent Consulting Provider: Johnnie Carrera Consult Reason/Comments: Oncological care Do you want consulting provider notified?: Yes Primary care physician: David Desouza [facility] Course: Refer to HPI from the same day Plan - Discharge Summary New Discharge Prescriptions: Continue Tiotropium 18 Mcg/Puff [Spiriva] 1 cap INHALATION RT-DAILY Albuterol Sulfate [Proair Hfa] 1 - 2 puff INHALATION RT-Q6H PRN PRN Reason: Shortness Of Breath ALPRAZolam [Xanax] 0.5 mg PO Q8HR PRN PRN Reason: Anxiety Omeprazole [PriLOSEC] 40 mg PO HS Mometasone/Formoterol [Dulera 200 Mcg/5 Mcg Inhaler] 2 puff INHALATION RT- DAILY Glimepiride [Amaryl] 2 mg PO BID metFORMIN HCL 1,000 mg PO BID LORazepam [Ativan] 1 mg PO TID BETWEEN MEALS PRN PRN Reason: Nausea Ondansetron HCl [Zofran] 8 mg PO TID PRN PRN Reason: Nausea Latanoprost Ophth [Xalatan 0.005%] 1 drops BOTH EYES HS HYDROcodone/APAP 7.5-325MG [[place] 7.5-325] 1 tab PO Q6H PRN PRN Reason: Pain Enoxaparin [Lovenox] 120 mg SQ DAILY #0 Discharge Medication List ALPRAZolam [Xanax] 0.5 mg PO Q8HR PRN 05/05/15 [History] Albuterol Sulfate [Proair Hfa] 1 - 2 puff INHALATION RT-Q6H PRN 05/05/15 [ History] Tiotropium 18 Mcg/Puff [Spiriva] 1 cap INHALATION RT-DAILY 05/05/15 [History] Mometasone/Formoterol [Dulera 200 Mcg/5 Mcg Inhaler] 2 puff INHALATION RT-DAILY 05/06/15 [History] Omeprazole [PriLOSEC] 40 mg PO HS 05/06/15 [History] Glimepiride [Amaryl] 2 mg PO BID 04/15/17 [History] LORazepam [Ativan] 1 mg PO TID BETWEEN MEALS PRN 04/15/17 [History] Ondansetron HCl [Zofran] 8 mg PO TID PRN 04/15/17 [History] metFORMIN HCL 1,000 mg PO BID 04/15/17 [History] HYDROcodone/APAP 7.5-325MG [[place] 7.5-325] 1 tab PO Q6H PRN 11/15/17 [History] Latanoprost Ophth [Xalatan 0.005%] 1 drops BOTH EYES HS 11/15/17 [History] Enoxaparin [Lovenox] 120 mg SQ DAILY #0 11/16/17 [Rx] Follow up Appointment(s)/Referral(s): David Desouza DO [Primary Care Provider] - 3 Days Desirae Masters MD [STAFF PHYSICIAN] - 1 Week Vern Hernández MD [STAFF PHYSICIAN] - 1 Week Patient Instructions/Handouts: Enoxaparin (By injection), Rectal Bleeding (DC) Activity/Diet/Wound Care/Special Instructions: Per Dr Rodriguez do not take your Lovenox tomorrow, SaturdayNovember 17. If you have not had any further bleeding in stool then ok to resume Lovenox on Saturday, November 18. Discharge Disposition: HOME SELF-CARE
== END 2017-11-16 18:19 | disposition home or self-care (01) | DRG 394 ==
LOC: EC 10:25 → 6SEL 12:58
PROVIDERS: ADMIT Family Medicine; ATTEND Family Medicine
PROC: 30233N1 Transfusion of Nonautologous Red Blood Cells into Peripheral Vein, Percutaneous Approach (ICD-10-PCS; principal; 2017-11-15)
DX: K52.0 Gastroenteritis and colitis due to radiation (principal); D62 Acute posthemorrhagic anemia; E87.1 Hypo-osmolality and hyponatremia; C25.9 Malignant neoplasm of pancreas, unspecified; E11.9 Type 2 diabetes mellitus without complications; K21.9 Gastro-esophageal reflux disease without esophagitis; J44.9 Chronic obstructive pulmonary disease, unspecified; F41.9 Anxiety disorder, unspecified; Y84.2 Radiological procedure and radiotherapy as the cause of abnormal reaction of the patient, or of later complication, without mention of misadventure at the time of the procedure; Z92.21 Personal history of antineoplastic chemotherapy; Z92.3 Personal history of irradiation; Z79.84 Long term (current) use of oral hypoglycemic drugs; Z79.51 Long term (current) use of inhaled steroids; Z79.899 Other long term (current) drug therapy; Z87.891 Personal history of nicotine dependence; Z82.5 Family history of asthma and other chronic lower respiratory diseases; Z80.0 Family history of malignant neoplasm of digestive organs; Z83.49 Family history of other endocrine, nutritional and metabolic diseases; Z87.440 Personal history of urinary (tract) infections; Z86.718 Personal history of other venous thrombosis and embolism; Z88.8 Allergy status to other drugs, medicaments and biological substances
CPT/HCPCS: 36415; 74177; 80048; 80053; 82272; 83036; 85025; 85610; 85730; 86850; 86900; 86901; 86920; 96361; 96374; 99285

== ENCOUNTER → 2018-05-02 | Outpatient (CLI) | payer BC ==
--- NOTE | 2018-05-02 10:23 | US ---
EXAMINATION TYPE: US abdomen limited DATE OF EXAM: 05/02/2018 COMPARISON: CT CLINICAL HISTORY: C25.0 Pancreatic Ca, R94.5 Abnormal labs. H/O pancreatic CA, recent jaundice and A BD pain EXAM MEASUREMENTS: Liver Length: 20.6 cm Gallbladder Wall: 0.5 cm CBD: 1.1 cm Right Kidney: 9.4 x 4.3 x 5.5 cm Pancreas: Obscured by bowel gas Liver: Enlarged, heterogeneous, multiple sub-centimeter lesions scattered throughout with largest wi thin right lobe= 0.8 x 0.8 x 0.9 cm Gallbladder: Thickened wall with sludge filling lumen Evidence for sonographic Bean's sign: Yes CBD: Dilated Right Kidney: wnl, lower pole gassed out Mild amount of ascites present IMPRESSION: 1. Hepatomegaly with multiple subcentimeter hypoattenuating lesions. Metastatic disease is suspected. 2. Gallbladder lumen is filled with sludge debris. 3. Common bile duct is dilated.
== END | disposition home or self-care (01) ==
LOC: RADUSWWP 08:26
PROVIDERS: ATTEND Internal Medicine Hematology & Oncology
DX: R16.0 Hepatomegaly, not elsewhere classified (principal); K76.89 Other specified diseases of liver; K83.8 Other specified diseases of biliary tract; C25.0 Malignant neoplasm of head of pancreas
CPT/HCPCS: 76705

== ENCOUNTER → 2018-05-19 | Outpatient (CLI) | payer BC ==
[2018-05-19 16:12] LABS: ALT 56 U/L (9-52); AST 129 U/L (14-36); Albumin 3.1 g/dL (3.5-5.0); Albumin/Globulin Ratio 0.8; Alkaline Phosphatase 657 U/L (38-126); Anion Gap 9 mmol/L; Blood Urea Nitrogen 11 mg/dL (7-17); Calcium 8.7 mg/dL (8.4-10.2); Carbon Dioxide 24 mmol/L (22-30); Chloride 105 mmol/L (98-107); Globulin 3.8 g/dL; Glucose 146 mg/dL (74-99); Sodium 138 mmol/L (137-145); Total Bilirubin 10.1 mg/dL (0.2-1.3); Total Protein 6.9 g/dL (6.3-8.2)
== END | disposition home or self-care (01) ==
LOC: LABWHC1 15:34
PROVIDERS: ATTEND Internal Medicine
DX: R74.8 Abnormal levels of other serum enzymes (principal)
CPT/HCPCS: 36415; 80053

== ENCOUNTER → 2018-05-29 | Outpatient (CLI) | payer BC ==
[2018-05-29 16:05] LABS: Anisocytosis Slight; HCT 32.7 % (34.0-46.0); HGB 9.3 gm/dL (11.4-16.0); Hypochromasia Marked; MCH 23.5 pg (25.0-35.0); MCHC 28.5 g/dL (31.0-37.0); MCV 82.7 fL (80.0-100.0); Mean Platelet Volume 6.9; Microcytosis Slight; Platelet Count 260 k/uL (150-450); Poikilocytosis Slight; RBC 3.95 m/uL (3.80-5.40); RDW 18.8 % (11.5-15.5); WBC 12.2 k/uL (3.8-10.6)
[2018-05-29 16:16] LABS: INR 1.7 (<1.2); Partial Thromboplastin Time 35.5 sec (22.0-30.0); Prothrombin Time 16.7 sec (9.0-12.0)
[2018-05-30 00:22] LABS: Albumin 3.4 g/dL (3.80-4.90); Albumin/Globulin Ratio 1.31 (1.20-2.10); Anion Gap 11.3 mmol/L (4.00-12.00); Bilirubin,Unconjugated 0.8 mg/dL; Calcium 8.5 mg/dL (8.7-10.3); Carbon Dioxide 19.7 mmol/L (21.6-31.8); Globulin 2.6 g/dL (1.6-3.3); Potassium 4.8 mmol/L (3.5-5.5); Total Bilirubin 3.8 mg/dL (0.2-1.2)
== END | disposition home or self-care (01) ==
LOC: LABWHC1 15:25
PROVIDERS: ATTEND Radiology Diagnostic Radiology
DX: C25.9 Malignant neoplasm of pancreas, unspecified (principal); K83.1 Obstruction of bile duct; R18.8 Other ascites
CPT/HCPCS: 36415; 80053; 82248; 85027; 85610; 85730

== ENCOUNTER 2018-06-26 17:03 | Inpatient (IN) | payer BC ==
[2018-06-26] MEDS ORDERED: PANTOPRAZOLE 40 MG/10 ML VIAL IVP STA (17:55)
[2018-06-26] MEDS ORDERED: ONDANSETRON 4 MG/2 ML VIAL IVP STA (17:55)
[2018-06-26] MEDS ORDERED: SODIUM CHLORIDE 0.9% 500 ML 500 ML IV STA (17:55)
[2018-06-26] MEDS ORDERED: MORPHINE SULFATE 4 MG/ML SYRINGE IV STA (17:55)
--- NOTE | 2018-06-26 17:58 | ED ---
General Adult HPI - General Chief complaint: Abdominal Pain Stated complaint: Abdominal pain Time Seen by Provider: 06/26/18 17:04 Source: patient, RN notes reviewed Mode of arrival: EMS Limitations: no limitations - History of Present Illness Initial comments: Patient is a pleasant 38-year-old female presenting to the emergency Department with abdominal discomfort and nausea and vomiting. Patient does have known pancreatic cancer diagnosed around 3 years ago. Patient is currently not on any oncological treatment for this. Patient did have recent stent placement and does have a draining tube to her abdomen as well. Patient is having more abdominal discomfort and feels more distended. Patient has been having less bowel movements. Patient is having nausea and vomiting. Emesis appeared dark yesterday. Patient still has continued nausea and discomfort. No fevers. Patient sees Dr. Masters. - Related Data Home Medications Medication Instructions Recorded Confirmed ALPRAZolam [Xanax] 0.5 mg PO Q8HR PRN 05/05/15 06/26/18 Albuterol Sulfate [Proair Hfa] 1 - 2 puff INHALATION RT-Q6H PRN 05/05/15 Tiotropium 18 Mcg/Puff [Spiriva] 1 cap INHALATION RT-DAILY 05/05/15 06/26/18 Mometasone/Formoterol [Dulera 200 2 puff INHALATION RT-BID 05/06/15 06/26/18 Mcg/5 Mcg Inhaler] Omeprazole [PriLOSEC] 40 mg PO HS 05/06/15 06/26/18 LORazepam [Ativan] 1 mg PO TID PRN 04/15/17 06/26/18 Ondansetron HCl [Zofran] 8 mg PO TID PRN 04/15/17 06/26/18 metFORMIN HCL 1,000 mg PO BID 04/15/17 06/26/18 Latanoprost Ophth [Xalatan 0.005%] 1 drops BOTH EYES HS 11/15/17 06/26/18 Apixaban [Eliquis] 5 mg PO BID 06/26/18 06/26/18 Diphenox-Atrop 2.5-0.025 mg 1 tab PO QID PRN 06/26/18 06/26/18 [Lomotil] HYDROcodone/APAP 10-325MG [[place] 1 tab PO Q6HR PRN 06/26/18 06/26/18 10-325] Insulin Degludec [Tresiba] 15 units SQ DAILY 06/26/18 06/26/18 fentaNYL 25MCG/HR PATCH [Duragesic 1 patch TRANSDERM Q72H 06/26/18 06/26/18 25MCG/HR] Allergies Allergy/AdvReac Type Severity Reaction Status Date / Time quinine AdvReac Vomiting Verified 06/26/18 17:56 Review of Systems ROS Statement: Those systems with pertinent positive or pertinent negative responses have been documented in the HPI. ROS Other: All systems not noted in ROS Statement are negative. Constitutional: Denies: fever Eyes: Denies: eye pain ENT: Denies: ear pain Respiratory: Denies: cough Cardiovascular: Denies: chest pain Endocrine: Reports: fatigue Gastrointestinal: Reports: abdominal pain, nausea, vomiting, constipation Genitourinary: Denies: dysuria Musculoskeletal: Denies: back pain Skin: Denies: rash Neurological: Denies: weakness Past Medical History Past Medical History: Blood Disorder, Cancer, COPD, Diabetes Mellitus, GERD/ Reflux Additional Past Medical History / Comment(s): Pancreatic Cancer, port-a-cath, glucoma, RADIATION AND CHEMO COMPLETED 07/29/17. ANEMIA-BLOOD TRANSFUSIONS. History of Any Multi-Drug Resistant Organisms: None Reported Past Surgical History: Section Additional Past Surgical History / Comment(s): port- a cath -Right upper chest, placed 2015, recent infection, not functioning properly. Past Anesthesia/Blood Transfusion Reactions: No Reported Reaction Past Psychological History: Anxiety Smoking Status: Former smoker Past Alcohol Use History: None Reported Past Drug Use History: None Reported - Past Family History Father Family Medical History: Dementia Mother Family Medical History: Cancer, COPD, Thyroid Disorder Additional Family Medical History / Comment(s): colon ca General Exam Limitations: no limitations General appearance: alert, in no apparent distress, cachectic Head exam: Present: atraumatic Eye exam: Present: normal appearance, PERRL ENT exam: Present: normal oropharynx Neck exam: Present: normal inspection Respiratory exam: Absent: normal lung sounds bilaterally Cardiovascular Exam: Present: tachycardia GI/Abdominal exam: Present: distended (Abdomen is mildly distended), tenderness (Mild to moderate diffuse tenderness), normal bowel sounds. Absent: guarding, rebound, rigid, pulsatile mass Extremities exam: Present: normal inspection. Absent: pedal edema, calf tenderness Neurological exam: Present: alert Psychiatric exam: Present: normal affect, normal mood Skin exam: Present: pallor Course Vital Signs 06/26/18 06/26/18 06/26/18 17:10 18:00 18:20 Temperature 98.1 F Pulse Rate 107 H 62 107 H Respiratory 22 16 Rate Blood Pressure 96/57 96/48 83/60 O2 Sat by Pulse 98 100 Oximetry Medical Decision Making - Medical Decision Making Patient reevaluated and somewhat improved. Patient states symptoms are starting to return. Patient and family updated on results and plan. Dr. Desouza has been paged for admission of this patient. - Lab Data Result diagrams: 06/26/18 18:20 06/26/18 18:20 Lab Results 06/26/18 06/26/18 06/26/18 Range/Units 18:20 18:20 18:20 WBC 5.9 (3.8-10.6) k/uL RBC 3.37 L (3.80-5.40) m/uL Hgb 7.6 L D (11.4-16.0) gm/dL Hct 25.3 L (34.0-46.0) % MCV 75.0 L D (80.0-100.0) fL MCH 22.7 L (25.0-35.0) pg MCHC 30.2 L (31.0-37.0) g/dL RDW 16.9 H (11.5-15.5) % Plt Count 261 (150-450) k/uL Neutrophils % 81 % Lymphocytes % 10 % Monocytes % 6 % Eosinophils % 1 % Basophils % 0 % Neutrophils # 4.8 (1.3-7.7) k/uL Lymphocytes # 0.6 L (1.0-4.8) k/uL Monocytes # 0.3 (0-1.0) k/uL Eosinophils # 0.0 (0-0.7) k/uL Basophils # 0.0 (0-0.2) k/uL Hypochromasia Marked Poikilocytosis Slight Anisocytosis Slight Microcytosis Slight PT 15.8 H (9.0-12.0) sec INR 1.6 H (<1.2) APTT 56.2 H (22.0-30.0) sec Sodium 130 L (137-145) mmol/L Potassium 4.8 (3.5-5.1) mmol/L Chloride 101 (98-107) mmol/L Carbon Dioxide 21 L (22-30) mmol/L Anion Gap 8 mmol/L BUN 24 H (7-17) mg/dL Creatinine 0.61 (0.52-1.04) mg/dL Est GFR (CKD-EPI)AfAm >90 (>60 ml/min/1.73 sqM) Est GFR (CKD-EPI)NonAf >90 (>60 ml/min/1.73 sqM) Glucose 214 H (74-99) mg/dL Calcium 8.6 (8.4-10.2) mg/dL Total Bilirubin 0.8 (0.2-1.3) mg/dL AST 37 H (14-36) U/L ALT 60 H (9-52) U/L Alkaline Phosphatase 212 H (38-126) U/L Total Protein 6.0 L (6.3-8.2) g/dL Albumin 2.9 L (3.5-5.0) g/dL Amylase <30 L (30-110) U/L Lipase <10 L (23-300) U/L - Radiology Data Radiology results: image reviewed (Abdominal x-ray shows no acute process) Disposition Clinical Impression: Abdominal pain, GI hemorrhage Disposition: ADMITTED IP TO THIS HOSP Is patient prescribed a controlled substance at d/c from ED?: No Referrals: David Desouza DO [Primary Care Provider] - 1-2 days Decision Time: 20:09
[2018-06-26 18:31] LABS: Anisocytosis Slight; Basophils % (A) 0 %; Eosinophils % (A) 1 %; HCT 25.3 % (34.0-46.0); Hypochromasia Marked; Lymphocytes # (A) 0.6 k/uL (1.0-4.8); Lymphocytes % (A) 10 %; MCH 22.7 pg (25.0-35.0); MCHC 30.2 g/dL (31.0-37.0); Mean Platelet Volume 7.2; Microcytosis Slight; Monocytes # (A) 0.3 k/uL (0-1.0); Monocytes % (A) 6 %; Neutrophils # (A) 4.8 k/uL (1.3-7.7); Neutrophils % (A) 81 %; Platelet Count 261 k/uL (150-450); Poikilocytosis Slight; RBC 3.37 m/uL (3.80-5.40); RDW 16.9 % (11.5-15.5); WBC 5.9 k/uL (3.8-10.6)
[2018-06-26 18:37] LABS: HGB 7.6 gm/dL (11.4-16.0)
[2018-06-26 18:45] LABS: ALT 60 U/L (9-52); AST 37 U/L (14-36); Albumin 2.9 g/dL (3.5-5.0); Alkaline Phosphatase 212 U/L (38-126); Amylase <30 U/L (30-110); Anion Gap 8 mmol/L; Blood Urea Nitrogen 24 mg/dL (7-17); Calcium 8.6 mg/dL (8.4-10.2); Carbon Dioxide 21 mmol/L (22-30); Chloride 101 mmol/L (98-107); Glucose 214 mg/dL (74-99); Lipase <10 U/L (23-300); Potassium 4.8 mmol/L (3.5-5.1); Sodium 130 mmol/L (137-145); Total Bilirubin 0.8 mg/dL (0.2-1.3)
[2018-06-26 18:50] LABS: INR 1.6 (<1.2); Prothrombin Time 15.8 sec (9.0-12.0)
[2018-06-26 19:12] LABS: Partial Thromboplastin Time 56.2 sec (22.0-30.0)
--- NOTE | 2018-06-26 19:35 | XR ---
EXAMINATION TYPE: XR KUB DATE OF EXAM: 06/26/2018 COMPARISON: NONE HISTORY: Abdominal pain TECHNIQUE: Single view FINDINGS: Single upright view shows a biliary stent. There is no sign of intestinal obstruction or pn eumoperitoneum. Fecal pattern is normal. There is drainage catheter over the pelvis. Lung bases are c lear. There are no pathologic calcifications over the kidneys. There are small amount of air in the b iliary tree consistent with the stent. IMPRESSION: Nonacute abdomen.
[2018-06-26] MEDS ORDERED: NALOXONE 0.4 MG/ML 1 ML VIAL IV PRN (20:10)
[2018-06-26] MEDS: SODIUM CHLORIDE 0.9% 1,000 ML IV SCH (21:30)
[2018-06-26] MEDS: ONDANSETRON 4 MG/2 ML VIAL IVP PRN (21:34)
[2018-06-26] MEDS: MORPHINE SULFATE 4 MG/ML SYRINGE IV PRN (21:35)
[2018-06-26] MEDS: PANTOPRAZOLE 40 MG/10 ML VIAL IV SCH (22:40)
[2018-06-27] MEDS: MORPHINE SULFATE 4 MG/ML SYRINGE IV PRN ×6 (01:22→21:50)
[2018-06-27 01:34] LABS: Appearance,Urine Cloudy (Clear); Bilirubin,Urine Negative (Negative); Blood,Urine Negative (Negative); Color,Urine Yellow; Glucose,Urine (UA) Negative (Negative); Hyaline Casts,Urine 4 /lpf (0-2); Ketones,Urine Negative (Negative); Leukocyte Esterase,Urine Moderate (Negative); Mucus,Urine Many /hpf; Nitrite,Urine Negative (Negative); Protein,Urine 1+ (Negative); RBC,Urine 4 /hpf (0-5); Specific Gravity,Urine 1.028 (1.001-1.035); Squamous Epithelial Cell,Urine 2 /hpf (0-4); Urobilinogen,Urine <2.0 mg/dL (<2.0); WBC,Urine 37 /hpf (0-5)
[2018-06-27] MEDS: ONDANSETRON 4 MG/2 ML VIAL IVP PRN ×3 (05:18→20:55)
[2018-06-27 07:33] LABS: Glucose,Whole Blood 181 mg/dL (75-99)
[2018-06-27] MEDS ORDERED: ONDANSETRON 4 MG TAB PO PRN (08:11)
[2018-06-27] MEDS ORDERED: DIPHENOX-ATROP 2.5-0.025 MG 1 EACH TAB PO PRN (08:11)
[2018-06-27] MEDS ORDERED: HYDROcodone/APAP 10-325MG 1 EACH TAB PO PRN (08:11)
[2018-06-27] MEDS ORDERED: LORazepam 1 MG TAB PO PRN (08:11)
[2018-06-27] MEDS ORDERED: ALBUTEROL NEBULIZED 2.5 MG/3 ML INHALATION PRN (08:11)
--- NOTE | 2018-06-27 08:30 | P.HPIM ---
History of Present Illness H&P Date: 06/27/18 Patient is a pleasant 58-year-old female presenting to the emergency Department with abdominal discomfort and nausea and vomiting. Patient does have known pancreatic cancer diagnosed around 3 years ago. Patient is currently not on any oncological treatment for this. Patient did have recent stent placement and does have a draining tube to her abdomen as well. Patient is having more abdominal discomfort and feels more distended. Patient has been having less bowel movements. Patient is having nausea and vomiting. Emesis appeared dark yesterday. Patient still has continued nausea and discomfort. No fevers. Patient sees Dr. Masters. She also follows with GI done at [facility] has had multiple procedures done Review of Systems Constitutional: Reports anorexia Eyes: denies blurred vision, denies diplopia Ears: deny: decreased hearing Cardiovascular: Denies chest pain, Denies shortness of breath Respiratory: Reports cough Gastrointestinal: Reports abdominal pain, Reports coffee ground emesis, Reports indigestion, Reports jaundice, Reports loss of appetite, Reports nausea, Reports vomiting Musculoskeletal: Reports atrophy, Reports muscle weakness Integumentary: Reports darkening of skin Neurological: Denies numbness, Denies weakness Psychiatric: Reports change in appetite, Reports depression Endocrine: Reports high blood sugars Hematologic/Lymphatic: Reports easy bleeding, Reports easy bruising Past Medical History Past Medical History: Blood Disorder, Cancer, COPD, Diabetes Mellitus, GERD/ Reflux Additional Past Medical History / Comment(s): Pancreatic Cancer, port-a-cath, glucoma, RADIATION AND CHEMO COMPLETED 07/29/17. ANEMIA-BLOOD TRANSFUSIONS. History of Any Multi-Drug Resistant Organisms: None Reported Past Surgical History: Section Additional Past Surgical History / Comment(s): port- a cath -Right upper chest, placed 2016, recent infection, not functioning properly. Past Anesthesia/Blood Transfusion Reactions: No Reported Reaction Past Psychological History: Anxiety Smoking Status: Former smoker Past Alcohol Use History: None Reported Past Drug Use History: None Reported - Past Family History Father Family Medical History: Dementia Mother Family Medical History: Cancer, COPD, Thyroid Disorder Additional Family Medical History / Comment(s): colon ca Medications and Allergies Home Medications Medication Instructions Recorded Confirmed Type ALPRAZolam [Xanax] 0.5 mg PO Q8HR PRN 05/05/15 06/26/18 History Albuterol Sulfate [Proair Hfa] 1 - 2 puff INHALATION RT-Q6H PRN 05/05/15 History Tiotropium 18 Mcg/Puff [Spiriva] 1 cap INHALATION RT-DAILY 05/05/15 06/26/18 History Mometasone/Formoterol [Dulera 200 2 puff INHALATION RT-BID 05/06/15 06/26/18 History Mcg/5 Mcg Inhaler] Omeprazole [PriLOSEC] 40 mg PO HS 05/06/15 06/26/18 History LORazepam [Ativan] 1 mg PO TID PRN 04/15/17 06/26/18 History Ondansetron HCl [Zofran] 8 mg PO TID PRN 04/15/17 06/26/18 History metFORMIN HCL 1,000 mg PO BID 04/15/17 06/26/18 History Latanoprost Ophth [Xalatan 0.005%] 1 drops BOTH EYES HS 11/15/17 06/26/18 History Apixaban [Eliquis] 5 mg PO BID 06/26/18 06/26/18 History Diphenox-Atrop 2.5-0.025 mg 1 tab PO QID PRN 06/26/18 06/26/18 History [Lomotil] HYDROcodone/APAP 10-325MG [[place] 1 tab PO Q6HR PRN 06/26/18 06/26/18 History 10-325] Insulin Degludec [Tresiba] 15 units SQ DAILY 06/26/18 06/26/18 History fentaNYL 25MCG/HR PATCH [Duragesic 1 patch TRANSDERM Q72H 06/26/18 06/26/18 History 25MCG/HR] Allergies Allergy/AdvReac Type Severity Reaction Status Date / Time quinine AdvReac Vomiting Verified 06/26/18 17:56 Physical Exam Osteopathic Statement: *. No significant issues noted on an osteopathic structural exam other than those noted in the History and Physical/Consult. Vitals: Vital Signs Temp Pulse Pulse Resp BP BP Pulse Ox 06/27/18 06:15 98.0 F 100 16 85/58 100 06/26/18 23:13 97.5 F L 106 H 16 96/61 100 06/26/18 21:00 104 H 16 99/61 97 02/28/19 20:46 100 20 94/62 97 06/26/18 20:00 101 H 20 100/65 97 06/26/18 18:20 107 H 16 83/60 100 06/26/18 18:00 62 96/48 06/26/18 17:10 98.1 F 107 H 22 96/57 98 Intake and Output 06/26/18 06/27/18 06/27/18 22:59 06:59 14:59 Intake Total 200 Output Total 310 Balance -110 Intake: Oral 200 Output: Drainage 180 Abdomen 180 Urine 130 Other: Voiding Method Toilet Weight 45.359 kg GENERAL: This is a 58-year-old in no apparent distress at the time of examination. Pleasant and cooperative. HEENT: Head is atraumatic, normocephalic. Pupils are equal, round, and reactive to light. Conjunctivae are clear. Mucus membranes of the mouth are moist. Neck is supple. RESPIRATORY: Clear to auscultation. No wheezes, rales, or rhonchi. No use of accessory muscles. Patient maintaining oxygen saturation greater than 92%. No chest wall tenderness is noted on palpation or with deep breathing. CARDIOVASCULAR: Regular rate and rhythm. S1 and S2 noted. No systolic or diastolic murmur auscultated. No JVD noted. No S3 or S4 noted. GASTROINTESTINAL: Increased abdominal distention no rebound rigidity or guarding positive ascites with ostomy draining bag with yellow to green ascites fluid accumulation INTEGUMENTARY: jaundice. No rashes noted. No cellulitis noted. EXTREMITIES: 2+ peripheral pulses. No evidence of peripheral edema. No calf tenderness noted. Atrophy in all muscle groups with cachectic appearance NEUROLOGIC: Cranial nerves II-XII intact. PSYCHIATRIC: Awake, alert, and oriented X 3. Appropriate affect. Intact judgement and insight. Results CBC & Chem 7: 06/26/18 18:20 06/26/18 18:20 Labs: Abnormal Lab Results - Last 24 Hours (Table) 06/26/18 06/26/18 06/26/18 Range/Units 18:20 18:20 18:20 RBC 3.37 L (3.80-5.40) m/uL Hgb 7.6 L D (11.4-16.0) gm/dL Hct 25.3 L (34.0-46.0) % MCV 75.0 L D (80.0-100.0) fL MCH 22.7 L (25.0-35.0) pg MCHC 30.2 L (31.0-37.0) g/dL RDW 16.9 H (11.5-15.5) % Lymphocytes # 0.6 L (1.0-4.8) k/uL PT 15.8 H (9.0-12.0) sec INR 1.6 H (<1.2) APTT 56.2 H (22.0-30.0) sec Sodium 130 L (137-145) mmol/L Carbon Dioxide 21 L (22-30) mmol/L BUN 24 H (7-17) mg/dL Glucose 214 H (74-99) mg/dL POC Glucose (mg/dL) (75-99) mg/dL AST 37 H (14-36) U/L ALT 60 H (9-52) U/L Alkaline Phosphatase 212 H (38-126) U/L Total Protein 6.0 L (6.3-8.2) g/dL Albumin 2.9 L (3.5-5.0) g/dL Amylase <30 L (30-110) U/L Lipase <10 L (23-300) U/L Urine Appearance (Clear) Urine Protein (Negative) Ur Leukocyte Esterase (Negative) Urine WBC (0-5) /hpf Hyaline Casts (0-2) /lpf Urine Mucus (None) /hpf 06/27/18 06/27/18 Range/Units 01:25 07:13 RBC (3.80-5.40) m/uL Hgb (11.4-16.0) gm/dL Hct (34.0-46.0) % MCV (80.0-100.0) fL MCH (25.0-35.0) pg MCHC (31.0-37.0) g/dL RDW (11.5-15.5) % Lymphocytes # (1.0-4.8) k/uL PT (9.0-12.0) sec INR (<1.2) APTT (22.0-30.0) sec Sodium (137-145) mmol/L Carbon Dioxide (22-30) mmol/L BUN (7-17) mg/dL Glucose (74-99) mg/dL POC Glucose (mg/dL) 181 H (75-99) mg/dL AST (14-36) U/L ALT (9-52) U/L Alkaline Phosphatase (38-126) U/L Total Protein (6.3-8.2) g/dL Albumin (3.5-5.0) g/dL Amylase (30-110) U/L Lipase (23-300) U/L Urine Appearance Cloudy H (Clear) Urine Protein 1+ H (Negative) Ur Leukocyte Esterase Moderate H (Negative) Urine WBC 37 H (0-5) /hpf Hyaline Casts 4 H (0-2) /lpf Urine Mucus Many H (None) /hpf Thrombosis Risk Factor Assmnt - Choose All That Apply Each Factor Represents 1 point: Age 41-60 years Other Risk Factors: No Thrombosis Risk Factor Assessment Total Risk Factor Score: 1 Thrombosis Risk Factor Assessment Level: Low Risk Assessment and Plan (1) Pancreatic cancer metastasized to liver Current Visit: Yes Status: Acute Code(s): C25.9 - MALIGNANT NEOPLASM OF PANCREAS, UNSPECIFIED; C78.7 - SECONDARY MALIG NEOPLASM OF LIVER AND INTRAHEPATIC BILE DUCT SNOMED Code(s): 825804104 (2) Abdominal pain Current Visit: Yes Status: Acute Code(s): R10.9 - UNSPECIFIED ABDOMINAL PAIN SNOMED Code(s): 93712570 (3) GI hemorrhage Current Visit: Yes Status: Acute Code(s): K92.2 - GASTROINTESTINAL HEMORRHAGE, UNSPECIFIED SNOMED Code(s): 77444039 (4) Ascites, malignant Current Visit: Yes Status: Acute Code(s): R18.0 - MALIGNANT ASCITES SNOMED Code(s): 023929981 Plan: Admit patient with full GI and oncology consultation and progress will have to determine whether patient is still a candidate for procedures. And if procedures can be performed here or that she have to returned on [facility] where original stents have been placed. We'll stabilize patient improved nausea and vomiting and await recommendations inadequate. To send her back emergently dowm to [facility] .
[2018-06-27 08:51] LABS: Anisocytosis Slight; Basophils % (A) 0 %; Eosinophils # (A) 0.1 k/uL (0-0.7); Eosinophils % (A) 2 %; HCT 25.9 % (34.0-46.0); HGB 7.3 gm/dL (11.4-16.0); Hypochromasia Marked; Lymphocytes # (A) 0.6 k/uL (1.0-4.8); Lymphocytes % (A) 12 %; MCH 22.1 pg (25.0-35.0); MCHC 28.1 g/dL (31.0-37.0); MCV 78.6 fL (80.0-100.0); Mean Platelet Volume 7.1; Microcytosis Slight; Monocytes # (A) 0.4 k/uL (0-1.0); Monocytes % (A) 7 %; Neutrophils # (A) 3.9 k/uL (1.3-7.7); Neutrophils % (A) 76 %; Platelet Count 245 k/uL (150-450); Poikilocytosis Slight; RBC 3.29 m/uL (3.80-5.40); RDW 16.7 % (11.5-15.5); WBC 5.2 k/uL (3.8-10.6)
[2018-06-27 09:01] LABS: ALT 48 U/L (9-52); AST 36 U/L (14-36); Albumin 2.7 g/dL (3.5-5.0); Alkaline Phosphatase 214 U/L (38-126); Anion Gap 7 mmol/L; Blood Urea Nitrogen 21 mg/dL (7-17); Calcium 8.1 mg/dL (8.4-10.2); Carbon Dioxide 20 mmol/L (22-30); Chloride 103 mmol/L (98-107); Glucose 172 mg/dL (74-99); Sodium 130 mmol/L (137-145); Total Bilirubin 0.7 mg/dL (0.2-1.3); Total Protein 5.6 g/dL (6.3-8.2)
[2018-06-27] MEDS: INSULIN ASPART (NovoLOG) 100 UNIT/ML VIAL SQ SCH ×4 (09:31→21:50)
[2018-06-27] MEDS: SODIUM CHLORIDE 0.9% 1,000 ML IV SCH ×2 (09:31→21:50)
[2018-06-27] MEDS: PANTOPRAZOLE 40 MG/10 ML VIAL IV SCH (11:00)
--- NOTE | 2018-06-27 11:00 | P.CONS ---
History of Present Illness - Reason for Consult Consult date: 06/27/18 GI bleed history of pancreatic cancer Requesting physician: David Desouza - Chief Complaint Abdominal pain nausea vomiting - History of Present Illness 58-year-old female with a past medical history of metastatic pancreatic carcinoma status post chemoradiation biliary stent placement admitted with abdominal pain nausea vomiting coffee-ground emesis. White count 5.9. Hemoglobin 7.6 previously 9.3 in April to a 19. MCV 75. Platelet 261. INR 1.6. BUN 24. Creatinine 0.6. Pancreatic enzymes normal. Total bilirubin 0.8. AST 37. ALT 60. AP to 12. Previous total bilirubin was 10.1 in April she has since underwent biliary stent placement at [facility]. Patient is presently on a chemotherapy holiday. She was evaluated at [facility] a month ago in regards to obstructive jaundice at that time she had a previous biliary stent exchanged and a Pleurx catheter placed. Additionally where previous biliary drain was placed now has an ostomy bag that is draining intermittent biliary ascitic drainage. Last dose of Eliquis was yesterday. She had an episode of coffee-ground emesis 1 yesterday afternoon none since. Denies hematochezia or melena. Diffuse mild abdominal abdominal discomfort. Review of Systems Constitutional: Denies fever, chills, sweats, weight gain, or loss. HEENT: Negative for migraines, blurred vision or loss, earaches, drainage, tinnitus, oral mucosal lesions, dysphagia, or odynophagia. CARDIAC: Negative for chest pain, arrhythmias, or palpitation. RESPIRATORY: Negative for shortness of breath, hemoptysis, cough, or sputum production. GI: See HPI for pertinent findings. : Negative for hematuria, urgency, frequency, polyuria, or dysuria. GYNc: Negative vaginal discharge. MUSCULOSKELETAL: Negative for muscle aches, swelling, arthritis, and arthralgias. NEUROLOGIC: Negative for stroke or TIA. ENDOCRINE: Negative for thyroid problems. SKIN: Negative for rash or itching. PSYCHIATRIC: Negative history for depression and anxiety Past Medical History Past Medical History: Blood Disorder, Cancer, COPD, Diabetes Mellitus, GERD/ Reflux Additional Past Medical History / Comment(s): Pancreatic Cancer, port-a-cath, glucoma, RADIATION AND CHEMO COMPLETED 07/29/17. ANEMIA-BLOOD TRANSFUSIONS. History of Any Multi-Drug Resistant Organisms: None Reported Past Surgical History: Section Additional Past Surgical History / Comment(s): port- a cath -Right upper chest, placed 2015, recent infection, not functioning properly. Past Anesthesia/Blood Transfusion Reactions: No Reported Reaction Past Psychological History: Anxiety Smoking Status: Former smoker Past Alcohol Use History: None Reported Past Drug Use History: None Reported - Past Family History Father Family Medical History: Dementia Mother Family Medical History: Cancer, COPD, Thyroid Disorder Additional Family Medical History / Comment(s): colon ca Medications and Allergies Home Medications Medication Instructions Recorded Confirmed Type ALPRAZolam [Xanax] 0.5 mg PO Q8HR PRN 05/05/15 06/26/18 History Albuterol Sulfate [Proair Hfa] 1 - 2 puff INHALATION RT-Q6H PRN 05/05/15 History Tiotropium 18 Mcg/Puff [Spiriva] 1 cap INHALATION RT-DAILY 05/05/15 06/26/18 History Mometasone/Formoterol [Dulera 200 2 puff INHALATION RT-BID 05/06/15 06/26/18 History Mcg/5 Mcg Inhaler] Omeprazole [PriLOSEC] 40 mg PO HS 05/06/15 06/26/18 History LORazepam [Ativan] 1 mg PO TID PRN 04/15/17 06/26/18 History Ondansetron HCl [Zofran] 8 mg PO TID PRN 04/15/17 06/26/18 History metFORMIN HCL 1,000 mg PO BID 04/15/17 06/26/18 History Latanoprost Ophth [Xalatan 0.005%] 1 drops BOTH EYES HS 11/15/17 06/26/18 History Apixaban [Eliquis] 5 mg PO BID 06/26/18 06/26/18 History Diphenox-Atrop 2.5-0.025 mg 1 tab PO QID PRN 06/26/18 06/26/18 History [Lomotil] HYDROcodone/APAP 10-325MG [[place] 1 tab PO Q6HR PRN 06/26/18 06/26/18 History 10-325] Insulin Degludec [Tresiba] 15 units SQ DAILY 06/26/18 06/26/18 History fentaNYL 25MCG/HR PATCH [Duragesic 1 patch TRANSDERM Q72H 06/26/18 06/26/18 History 25MCG/HR] Allergies Allergy/AdvReac Type Severity Reaction Status Date / Time quinine AdvReac Vomiting Verified 06/26/18 17:56 Physical Exam Vitals: Vital Signs Temp Pulse Pulse Resp BP BP Pulse Ox 06/27/18 06:15 98.0 F 100 16 85/58 100 06/26/18 23:13 97.5 F L 106 H 16 96/61 100 06/26/18 21:00 104 H 16 99/61 97 06/26/18 20:46 100 20 94/62 97 06/26/18 20:00 101 H 20 100/65 97 06/26/18 18:20 107 H 16 83/60 100 06/26/18 18:00 62 96/48 06/26/18 17:10 98.1 F 107 H 22 96/57 98 Intake and Output 06/26/18 06/27/18 06/27/18 22:59 06:59 14:59 Intake Total 200 Output Total 310 Balance -110 Intake: Oral 200 Output: Drainage 180 Abdomen 180 Urine 130 Other: Voiding Method Toilet Weight 45.359 kg General appearance: The patient is alert, oriented, in no acute distress. HET: Head is normocephalic and atraumatic. Pupils are equal and reactive. Oropharynx is clear without lesions. Neck: Supple without lymphadenopathy. Trachea midline. Heart: S1 S2. Regular rate and rhythm. Lungs: No crackles or wheezes are heard. Abdomen: Soft, mild tenderness diffusely across the entire abdomen Pleurx catheter in place without drainage, subcostal midline wound with ostomy draining yellow thin serous fluid. Positive bowel sounds. No peritoneal signs. No palpable organomegaly or masses. Extremities: Normal skin color and turgor. No cyanosis, rash, ulceration, clubbing, or edema. Radial and pedal pulses are 2/4 bilaterally. Neurological: No focal deficits. Strength and sensation are grossly intact. Results CBC & Chem 7: 06/27/18 08:19 06/27/18 08:19 Labs: Abnormal Lab Results - Last 24 Hours (Table) 06/26/18 06/26/18 06/26/18 Range/Units 18:20 18:20 18:20 RBC 3.37 L (3.80-5.40) m/uL Hgb 7.6 L D (11.4-16.0) gm/dL Hct 25.3 L (34.0-46.0) % MCV 75.0 L D (80.0-100.0) fL MCH 22.7 L (25.0-35.0) pg MCHC 30.2 L (31.0-37.0) g/dL RDW 16.9 H (11.5-15.5) % Lymphocytes # 0.6 L (1.0-4.8) k/uL PT 15.8 H (9.0-12.0) sec INR 1.6 H (<1.2) APTT 56.2 H (22.0-30.0) sec Sodium 130 L (137-145) mmol/L Carbon Dioxide 21 L (22-30) mmol/L BUN 24 H (7-17) mg/dL Glucose 214 H (74-99) mg/dL POC Glucose (mg/dL) (75-99) mg/dL AST 37 H (14-36) U/L ALT 60 H (9-52) U/L Alkaline Phosphatase 212 H (38-126) U/L Total Protein 6.0 L (6.3-8.2) g/dL Albumin 2.9 L (3.5-5.0) g/dL Amylase <30 L (30-110) U/L Lipase <10 L (23-300) U/L Urine Appearance (Clear) Urine Protein (Negative) Ur Leukocyte Esterase (Negative) Urine WBC (0-5) /hpf Hyaline Casts (0-2) /lpf Urine Mucus (None) /hpf 06/27/18 06/27/18 Range/Units 01:25 07:13 RBC (3.80-5.40) m/uL Hgb (11.4-16.0) gm/dL Hct (34.0-46.0) % MCV (80.0-100.0) fL MCH (25.0-35.0) pg MCHC (31.0-37.0) g/dL RDW (11.5-15.5) % Lymphocytes # (1.0-4.8) k/uL PT (9.0-12.0) sec INR (<1.2) APTT (22.0-30.0) sec Sodium (137-145) mmol/L Carbon Dioxide (22-30) mmol/L BUN (7-17) mg/dL Glucose (74-99) mg/dL POC Glucose (mg/dL) 181 H (75-99) mg/dL AST (14-36) U/L ALT (9-52) U/L Alkaline Phosphatase (38-126) U/L Total Protein (6.3-8.2) g/dL Albumin (3.5-5.0) g/dL Amylase (30-110) U/L Lipase (23-300) U/L Urine Appearance Cloudy H (Clear) Urine Protein 1+ H (Negative) Ur Leukocyte Esterase Moderate H (Negative) Urine WBC 37 H (0-5) /hpf Hyaline Casts 4 H (0-2) /lpf Urine Mucus Many H (None) /hpf Abdominal x-ray: report reviewed (Dr. Elam) Assessment and Plan (1) Coffee ground emesis Narrative/Plan: 58 y/o female admitted with coffee ground emesis receiving anticoagulation for history of thrombus with underlying metastatic pancreatic cancer with Pleurx catheter and recent biliary stenting. Possible Carmina Lerner tear, possible gastritis esophagitis, underlying peptic ulcer disease bleeding angiectasia exacerbated by anticoagulation cannot be excluded. Current Visit: Yes Status: Acute Code(s): K92.0 - HEMATEMESIS SNOMED Code( s): 30593199 (2) Abdominal pain Current Visit: Yes Status: Acute Code(s): R10.9 - UNSPECIFIED ABDOMINAL PAIN SNOMED Code(s): 61139294 (3) Nausea & vomiting Current Visit: Yes Status: Acute Code(s): R11.2 - NAUSEA WITH VOMITING, UNSPECIFIED SNOMED Code(s): 92909637 (4) Pancreatic cancer Current Visit: Yes Status: Acute Code(s): C25.9 - MALIGNANT NEOPLASM OF PANCREAS, UNSPECIFIED SNOMED Code(s): 764109565 (5) Chronic anemia Current Visit: Yes Status: Acute Code(s): D64.9 - ANEMIA, UNSPECIFIED SNOMED Code(s): 894575401 Plan: 1. Presently no bleeding. Hemoglobin stable. Continue to hold anticoagulation. CBC daily. Protonix 40 mg daily. EGD if patient has recurrent bloody emesis and or precipitous drop in hemoglobin. 2. Patient scheduled to f/u with oncologist Saturday. 3. Liquid diet for now. Thank you for this kind referral and the opportunity to participate in the care of your patient. This consultation was discussed with Dr. Elam. The impression and plan of care have been directed as dictated.
[2018-06-27] MEDS: IPRATROPIUM 0.5 MG/2.5 ML NEBU INHALATION SCH ×3 (11:24→19:59)
[2018-06-27] MEDS: SYMBICORT 160-4.5 MCG INHALER INHALATION SCH ×2 (11:24→19:59)
[2018-06-27 11:47] VITALS: BMI 17.6
[2018-06-27 11:48] LABS: Glucose,Whole Blood 163 mg/dL (75-99)
[2018-06-27 17:30] LABS: Glucose,Whole Blood 163 mg/dL (75-99)
[2018-06-27 20:46] LABS: Glucose,Whole Blood 128 mg/dL (75-99)
[2018-06-27] MEDS ORDERED: NON-FORMULARY DRUG (Omeprazole [Prilosec] 40 MG) PO SCH (21:00)
[2018-06-27] MEDS: LATANOPROST 0.005% OPHTH DROPS 2.5 ML BTL BOTH EYES SCH (21:50)
[2018-06-27 22:15] LABS: Anisocytosis Slight; HCT 27.8 % (34.0-46.0); HGB 8.1 gm/dL (11.4-16.0); Hypochromasia Marked; MCH 22.2 pg (25.0-35.0); MCV 76.6 fL (80.0-100.0); Mean Platelet Volume 7.2; Microcytosis Slight; Platelet Count 232 k/uL (150-450); Poikilocytosis Slight; RBC 3.63 m/uL (3.80-5.40); RDW 16.8 % (11.5-15.5); WBC 8.3 k/uL (3.8-10.6)
[2018-06-27] MEDS ORDERED: PROCHLORPERAZINE SUPPOSITORY 25 MG SUPP RECTAL PRN (23:55)
[2018-06-28] MEDS ORDERED: IOPAMIDOL-300 CONTRAST 30 ML VIAL (ORAL USE) PO PRN (00:39)
--- NOTE | 2018-06-28 00:39 | P.CONS ---
History of Present Illness - Reason for Consult Consult date: 06/27/18 Metastatic pancreatic cancer - History of Present Illness The pt is a 58 yr old WF who presented with intermittent RUQ and epigastric pain,had CT scan of abdomen on 05/05/2015 which revealed thrombosed SMV,on 05/07,MRCP revealed 3.1cm mass at the head of pancreas,very close to SMV. She was referred to [facility] and on 05/10/2015,she had EUS and FNA of the mass was positive for adenocarcinoma.On 05/10/2015 CA19-9 was 601.4. She was evaluated by Dr Meeks and felt that she was borderline resectable and neoadjuvant therapy was recommended. On 05/19/2015 CT scan of chest revealed multiple small lung nodules. She started gemzar/abraxane on 05/27/2015. CA19-9 on 11/10/2015 was 22.1. She had a follow up CT scan and visit with Dr Alejandre at [facility] on 11/15/2015 and felt that she was unresectable and recommended to continue systemic therapy. Chemotherapy was held after 10/27/2015 due to fatigue and hematologic toxicites. On 12/12/2015,CA19-9 was 119 She resemued treatment on 12/12/2015 until 01/26/2016. CA19-9 on 02/10/2016 was up to 149 She was re-evalued at [facility] in ,she repeat CT scan which revealed similar finding in pancreas,however,there was possible new lesion at the dome of liver,attempted biopsy was unsuccessful. On 03/14/2016,she started liposomal irinotecan/infusional 5 FU. On 03/08/2017,repeat CT scan at [facility] revealed stable disease. She started to progress in late 2016. On 05/24/2017,CA19-9 was up 200.0 On 05/22/2017 onyvide/5FU were discontinued. Repeat CT scan with pancreatic protocol on 05/31/2017 revealed slight increase in the head of pancreas mass, non specific and stable liver lesion. She started concurrent xeloda radiation on 06/17/2017 and completed on 2017 On 12/07/2017,CA19-9 showed progression up to 422. She was evaluated at [facility] for possible phase I clinical trials,and felt not a clinical trial candidate at this time. On 01/17/2018,she started gemzar/tarceva. On 03/06/2018,CA19-9 was up to 656, gemzar/tarceva were discontinued. On 03/19/2018,repeat CT scan revealed slight progression of her liver disease The plan was to start FOLFOX,she postponed it until after New 2017,however, on 04/30/2018,she developed obstructive jaundice and her bilirubin went up to over 5,U/S of liver on 05/02/2018 revealed multiple small liver lesions,dilated common bile duct and sludge in gallbladder,she also had paracentesis due to ascites. She was seen at [facility] for ERCP.She was admitted and had an external biliary drain placed and then removed, exchanged for an internal drain. she had a drain placed in abd for relief of ascites.. She was lst seen in the office on 06/16/18. Pt was seen with sister for palliative care discussion. She was getting up to 2 L a day out now only getting about 0.5L ascitic fluid off, associated with cramping, there was ascitic fluid draining from the hole where the biliary drain was removed. She was offered a duodenal stent, intent being to palliate any pending obstruction. Pt is still tolerating oral intake,very small amounts, no F,N,V,diarrhea. She had called the office c/o epigastric pain, increased from baseline, as well as 2 episodes of vomitting dark , coffee ground material, over 24 hrs. She had not had a BM for about 2 days, but was passing gas. She was asked to go into the ER and admitted for further manangement, with consult placed Review of Systems Constitutional: Reports chronic pain, Reports fatigue, Reports poor appetite, Reports weakness, Reports weight loss Eyes: denies blurred vision, denies pain Ears: deny: decreased hearing, ear discharge, earache, tinnitus Ears, nose, mouth and throat: Denies headache, Denies sore throat Cardiovascular: Reports decreased exercise tolerance Respiratory: Denies cough Gastrointestinal: Reports as per HPI, Reports abdominal pain, Reports bloating, Reports constipation, Reports hematemesis, Reports nausea, Reports vomiting Genitourinary: Denies dysuria, Denies hematuria Menstruation: Reports postmenopausal Musculoskeletal: Reports muscle weakness Integumentary: Denies pruritus, Denies rash Neurological: Reports weakness Psychiatric: Reports as per HPI Endocrine: Reports fatigue, Reports weight change Hematologic/Lymphatic: Reports as per HPI Past Medical History Past Medical History: Blood Disorder, Cancer, COPD, Diabetes Mellitus, GERD/ Reflux Additional Past Medical History / Comment(s): Pancreatic Cancer, port-a-cath, glucoma, RADIATION AND CHEMO COMPLETED 07/29/17. ANEMIA-BLOOD TRANSFUSIONS. History of Any Multi-Drug Resistant Organisms: None Reported Past Surgical History: Section Additional Past Surgical History / Comment(s): port- a cath -Right upper chest, placed 2015, recent infection, not functioning properly. Past Anesthesia/Blood Transfusion Reactions: No Reported Reaction Past Psychological History: Anxiety Smoking Status: Former smoker Past Alcohol Use History: None Reported Past Drug Use History: None Reported - Past Family History Father Family Medical History: Dementia Mother Family Medical History: Cancer, COPD, Thyroid Disorder Additional Family Medical History / Comment(s): colon ca Medications and Allergies Home Medications Medication Instructions Recorded Confirmed Type ALPRAZolam [Xanax] 0.5 mg PO Q8HR PRN 05/05/15 06/26/18 History Albuterol Sulfate [Proair Hfa] 1 - 2 puff INHALATION RT-Q6H PRN 05/05/15 History Tiotropium 18 Mcg/Puff [Spiriva] 1 cap INHALATION RT-DAILY 05/05/15 06/26/18 History Mometasone/Formoterol [Dulera 200 2 puff INHALATION RT-BID 05/06/15 06/26/18 History Mcg/5 Mcg Inhaler] Omeprazole [PriLOSEC] 40 mg PO HS 05/06/15 06/26/18 History LORazepam [Ativan] 1 mg PO TID PRN 04/15/17 06/26/18 History Ondansetron HCl [Zofran] 8 mg PO TID PRN 04/15/17 06/26/18 History metFORMIN HCL 1,000 mg PO BID 04/15/17 06/26/18 History Latanoprost Ophth [Xalatan 0.005%] 1 drops BOTH EYES HS 11/15/17 06/26/18 History Apixaban [Eliquis] 5 mg PO BID 06/26/18 06/26/18 History Diphenox-Atrop 2.5-0.025 mg 1 tab PO QID PRN 06/26/18 06/26/18 History [Lomotil] HYDROcodone/APAP 10-325MG [[place] 1 tab PO Q6HR PRN 06/26/18 06/26/18 History 10-325] Insulin Degludec [Tresiba] 15 units SQ DAILY 06/26/18 06/26/18 History fentaNYL 25MCG/HR PATCH [Duragesic 1 patch TRANSDERM Q72H 06/26/18 06/26/18 History 25MCG/HR] Allergies Allergy/AdvReac Type Severity Reaction Status Date / Time quinine AdvReac Vomiting Verified 06/26/18 17:56 Physical Exam Vitals: Vital Signs Temp Pulse Pulse Resp BP BP Pulse Ox 06/27/18 15:00 97.1 F L 100 16 88/56 99 06/27/18 06:15 98.0 F 100 16 85/58 100 06/26/18 23:13 97.5 F L 106 H 16 96/61 100 06/26/18 21:00 104 H 16 99/61 97 06/26/18 20:46 100 20 94/62 97 06/26/18 20:00 101 H 20 100/65 97 06/26/18 18:20 107 H 16 83/60 100 06/26/18 18:00 62 96/48 06/26/18 17:10 98.1 F 107 H 22 96/57 98 Intake and Output 06/27/18 06/27/18 06/27/18 06:59 14:59 22:59 Intake Total 200 640 Output Total 310 550 Balance -110 90 Intake: Oral 200 640 Output: Drainage 180 100 Abdomen 180 100 Urine 130 200 Other 250 Other: Voiding Method Toilet Toilet Weight 45.359 kg - Constitutional General appearance: no acute distress - EENT Eyes: EOMI, PERRLA ENT: hearing grossly normal, normal oropharynx - Neck Neck: no lymphadenopathy Thyroid: bilateral: normal size - Respiratory Respiratory: bilateral: CTA - Cardiovascular Rhythm: regular Heart sounds: normal: S1, S2 - Gastrointestinal ostomy bag left mid abdomen draining ascitic fluid PleurX drain L lower abdomen,also for ascitic fluid drainage General gastrointestinal: decreased bowel sounds, distended, soft - Integumentary Integumentary: normal - Neurologic Neurologic: CNII-XII intact - Musculoskeletal Musculoskeletal: generalized weakness, strength equal bilaterally - Psychiatric Psychiatric: A&O x's 3, appropriate affect Results CBC & Chem 7: 06/27/18 22:04 06/27/18 08:19 Labs: Abnormal Lab Results - Last 24 Hours (Table) 06/26/18 06/26/18 06/26/18 Range/Units 18:20 18:20 18:20 RBC 3.37 L (3.80-5.40) m/uL Hgb 7.6 L D (11.4-16.0) gm/dL Hct 25.3 L (34.0-46.0) % MCV 75.0 L D (80.0-100.0) fL MCH 22.7 L (25.0-35.0) pg MCHC 30.2 L (31.0-37.0) g/dL RDW 16.9 H (11.5-15.5) % Lymphocytes # 0.6 L (1.0-4.8) k/uL PT 15.8 H (9.0-12.0) sec INR 1.6 H (<1.2) APTT 56.2 H (22.0-30.0) sec Sodium 130 L (137-145) mmol/L Carbon Dioxide 21 L (22-30) mmol/L BUN 24 H (7-17) mg/dL Creatinine (0.52-1.04) mg/dL Glucose 214 H (74-99) mg/dL POC Glucose (mg/dL) (75-99) mg/dL Calcium (8.4-10.2) mg/dL AST 37 H (14-36) U/L ALT 60 H (9-52) U/L Alkaline Phosphatase 212 H (38-126) U/L Total Protein 6.0 L (6.3-8.2) g/dL Albumin 2.9 L (3.5-5.0) g/dL Amylase <30 L (30-110) U/L Lipase <10 L (23-300) U/L Urine Appearance (Clear) Urine Protein (Negative) Ur Leukocyte Esterase (Negative) Urine WBC (0-5) /hpf Hyaline Casts (0-2) /lpf Urine Mucus (None) /hpf 06/27/18 06/27/18 06/27/18 Range/Units 01:25 07:13 08:19 RBC 3.29 L (3.80-5.40) m/uL Hgb 7.3 L (11.4-16.0) gm/dL Hct 25.9 L (34.0-46.0) % MCV 78.6 L (80.0-100.0) fL MCH 22.1 L (25.0-35.0) pg MCHC 28.1 L (31.0-37.0) g/dL RDW 16.7 H (11.5-15.5) % Lymphocytes # 0.6 L (1.0-4.8) k/uL PT (9.0-12.0) sec INR (<1.2) APTT (22.0-30.0) sec Sodium (137-145) mmol/L Carbon Dioxide (22-30) mmol/L BUN (7-17) mg/dL Creatinine (0.52-1.04) mg/dL Glucose (74-99) mg/dL POC Glucose (mg/dL) 181 H (75-99) mg/dL Calcium (8.4-10.2) mg/dL AST (14-36) U/L ALT (9-52) U/L Alkaline Phosphatase (38-126) U/L Total Protein (6.3-8.2) g/dL Albumin (3.5-5.0) g/dL Amylase (30-110) U/L Lipase (23-300) U/L Urine Appearance Cloudy H (Clear) Urine Protein 1+ H (Negative) Ur Leukocyte Esterase Moderate H (Negative) Urine WBC 37 H (0-5) /hpf Hyaline Casts 4 H (0-2) /lpf Urine Mucus Many H (None) /hpf 06/27/18 06/27/18 Range/Units 08:19 11:41 RBC (3.80-5.40) m/uL Hgb (11.4-16.0) gm/dL Hct (34.0-46.0) % MCV (80.0-100.0) fL MCH (25.0-35.0) pg MCHC (31.0-37.0) g/dL RDW (11.5-15.5) % Lymphocytes # (1.0-4.8) k/uL PT (9.0-12.0) sec INR (<1.2) APTT (22.0-30.0) sec Sodium 130 L (137-145) mmol/L Carbon Dioxide 20 L (22-30) mmol/L BUN 21 H (7-17) mg/dL Creatinine 0.51 L (0.52-1.04) mg/dL Glucose 172 H (74-99) mg/dL POC Glucose (mg/dL) 163 H (75-99) mg/dL Calcium 8.1 L (8.4-10.2) mg/dL AST (14-36) U/L ALT (9-52) U/L Alkaline Phosphatase 214 H (38-126) U/L Total Protein 5.6 L (6.3-8.2) g/dL Albumin 2.7 L (3.5-5.0) g/dL Amylase (30-110) U/L Lipase (23-300) U/L Urine Appearance (Clear) Urine Protein (Negative) Ur Leukocyte Esterase (Negative) Urine WBC (0-5) /hpf Hyaline Casts (0-2) /lpf Urine Mucus (None) /hpf Abdominal x-ray: report reviewed Assessment and Plan (1) Coffee ground emesis Narrative/Plan: This has ceased for now. Hgb dropped from a baseline of low 9's in late 05/17, into the 7-8 range. Pt has been seen by GI. Differential includes gastritis/ ulceration/erosions, as well as direct invasion of the primary tumor into the stomach/duodenum, aggravated further by anticoagulant use - Agree with plan for monitoring of Hgb, withholding anticoagulation, and PPI therapy, with EGD if evidence of recurrent bleeding. D/W pt that her current regimen is appropriate anyway for the above possibilities. Current Visit: Yes Status: Acute Code(s): K92.0 - HEMATEMESIS SNOMED Code( s): 51859100 (2) Pancreatic cancer metastasized to liver Narrative/Plan: Therapeutic and diagnostic circumstances as described. The pt was felt to be an appropriate candidate for comfort care, based on her severe liver dysfunction , and poor PS. Though jaundice has markedly improved with stent exchange, she remains quite debilitated. Her remaining treatment options are quite limited, with fairly small average chance of effectiveness and benefit. Thus comfort care remains an appropriate option. The pt wants to discuss with Dr Masters before making any decisions - repeat Ca 19-9 - There is also concern for the tumor at the primary site causing duodenal obstruction. So far, she has been able to tolerate PO. A duodenal stent is appropriate, if it can be placed, even from the comfort standpoint. She has been offered the same at [facility], and was advised to schedule the same there SC[facility] post discharge Repeat CT AP , especially to check for gastric outlet / duodenal obstruction Current Visit: Yes Status: Acute Code(s): C25.9 - MALIGNANT NEOPLASM OF PANCREAS, UNSPECIFIED; C78.7 - SECONDARY MALIG NEOPLASM OF LIVER AND INTRAHEPATIC BILE DUCT SNOMED Code(s): 935475730 (3) Ascites, malignant Narrative/Plan: S/P PleurX drain. Output has decreased likely due to drainage from the biliary drain placement site. This is being collected in an ostomy bag Current Visit: Yes Status: Acute Code(s): R18.0 - MALIGNANT ASCITES SNOMED Code(s): 769033116 (4) Chronic anemia Narrative/Plan: Further drop in baseline, likely due to UGI hemorrhage, with subsequent stabilisation. Hgb is still in a safe range. Continue to monitor, with transfusion as needed Current Visit: Yes Status: Acute Code(s): D64.9 - ANEMIA, UNSPECIFIED SNOMED Code(s): 381703682 Plan: Prognosis is very guarded
[2018-06-28] MEDS: ONDANSETRON 4 MG/2 ML VIAL IVP PRN ×3 (03:54→21:32)
[2018-06-28 07:04] LABS: Glucose,Whole Blood 274 mg/dL (75-99)
[2018-06-28] MEDS: SYMBICORT 160-4.5 MCG INHALER INHALATION SCH ×2 (07:26→19:07)
[2018-06-28] MEDS: IPRATROPIUM 0.5 MG/2.5 ML NEBU INHALATION SCH ×4 (07:27→19:08)
[2018-06-28] MEDS: INSULIN ASPART (NovoLOG) 100 UNIT/ML VIAL SQ SCH ×4 (08:09→21:32)
[2018-06-28 08:12] LABS: Anisocytosis Slight; HCT 27.5 % (34.0-46.0); HGB 7.8 gm/dL (11.4-16.0); Hypochromasia Marked; MCH 22.3 pg (25.0-35.0); MCHC 28.3 g/dL (31.0-37.0); MCV 78.9 fL (80.0-100.0); Mean Platelet Volume 7.5; Microcytosis Slight; Platelet Count 218 k/uL (150-450); Poikilocytosis Slight; RBC 3.48 m/uL (3.80-5.40); RDW 16.8 % (11.5-15.5); WBC 6.5 k/uL (3.8-10.6)
[2018-06-28] MEDS: SODIUM CHLORIDE 0.9% 1,000 ML IV SCH ×2 (08:18→21:41)
[2018-06-28] MEDS: MORPHINE SULFATE 4 MG/ML SYRINGE IV PRN ×4 (08:19→23:24)
[2018-06-28] MEDS: ALPRAZolam 0.5 MG TAB PO PRN (08:19)
[2018-06-28] MEDS: PANTOPRAZOLE 40 MG/10 ML VIAL IV SCH (08:19)
[2018-06-28] MEDS: METOCLOPRAMIDE 5 MG/ML 2 ML VIAL IVP SCH ×3 (11:29→23:20)
[2018-06-28 11:57] LABS: Glucose,Whole Blood 277 mg/dL (75-99)
--- NOTE | 2018-06-28 12:51 | PN ---
PROGRESS NOTE DATE OF DICTATION: 06/28/2018 Requesting physician: Dr. Carrera. Patient is a 58-year-old pleasant white female with history of metastatic pancreatic carcinoma diagnosed in 2016, undergoing chemotherapy. Last cycle was in March of 2018. She was admitted to the hospital with nausea, vomiting and coffee-ground emesis for the last 2 days' duration. She had 2 episodes of coffee-ground emesis yesterday. Her initial hemoglobin was 7.6 g/dL 2 days ago and today it is 7.8 g/dL. Patient follows with Dr. Masters on an outpatient basis. She was evaluated at [facility] a month ago for obstructive jaundice and underwent attempted biliary stent that was unsuccessful, and subsequently she had a percutaneous biliary drainage catheter placed. She had a repeat ERCP 4 weeks ago and, according to the patient, they were able to successfully place the biliary stent and the external drain was removed. Since then she has been having some ascites draining through the site where she had the biliary catheter placed. She also has recurrent ascites for the last 3 months and has a PleurX catheter in place. She was seen by Dr. Carrera today and she is scheduled for a CT of the abdomen and pelvis, but she is very concerned about the oral contrast. PHYSICAL EXAMINATION: She appears comfortable. No apparent distress. Vital signs are stable. Blood pressure is 90/60, pulse rate 116, temperature 98.8 HEENT EXAMINATION: Unremarkable. Conjunctivae are pink, sclerae anicteric. Oral cavity with no lesions. NECK: No JVD or lymph node enlargement. Chest was clear to auscultation. HEART: Regular rate and rhythm. ABDOMEN: Soft. There was an ostomy in the epigastric area that was draining bilious ascites. PleurX catheter not connected to any bag. There was mild tenderness in the epigastric area. EXTREMITIES: No pedal edema. SKIN: No rashes. NEURO: Alert and oriented x3. No focal deficits. LABS: Labs from today show WBC 6.5, hemoglobin 7.8, platelets 218. Total bilirubin 2 days ago was 0.7. Yesterday it was 0.7. ALT, AST were 36 and 48, respectively. Alkaline phosphatase 214. Gastroccult was positive. IMPRESSION: 1. Nausea, vomiting, coffee-ground emesis of 2 days' duration which appears to be gradually responding and subsiding. Presently on IV Protonix as well as Zofran. Continues to have persistent nausea. 2. Metastatic pancreatic cancer, status post chemotherapy. Last dose was in March of 2016. Status post ERCP with a CBD metal stent placement at [facility] about 4 or 5 weeks ago. LFTs are within normal limits. RECOMMENDATIONS: 1. Continue with Protonix 40 mg q.12 hours. 2. Continue with IV Zofran. 3. Will add IV Reglan for the nausea. 4. No plans for any endoscopic intervention at the present time since her emesis appears to have resolved and her hemoglobin is stable. 5. Repeat labs in the morning. Will follow the patient closely during her hospital stay. Thank you for this consultation. MMODL / IJN: [id number] /
--- NOTE | 2018-06-28 13:57 | PN ---
PROGRESS NOTE DATE OF SERVICE: 06/28/2018 CHIEF COMPLAINT: Weak and nauseated. Katey is seen today in followup. She continued to be very weak. She has a lot of issues with nausea. Her pain is under control with current pain medication regimen. She remains weak and very cachectic. She has not had a bowel movement. CURRENT MEDICATIONS: Reviewed in her electronic medical record. PHYSICAL EXAMINATION: She is alert. She is cachectic. She does not appear to be in distress at this time. Her vital signs are temperature 98.8, afebrile, pulse 116, respirations 16, blood pressure 90/61. HEENT: Normocephalic, atraumatic. Sclerae are very pale. No icterus. Oral mucosa dry. NECK: Supple. CHEST: Equal expansion bilaterally. Lungs are clear. Abdomen is somewhat distended. She has tenderness in the right upper quadrant. She has significant drainage from the catheter for her ascites. EXTREMITIES: No significant edema. SKIN: Multiple bruises. No petechiae. LABORATORY DATA: Today WBC 6.5, hemoglobin 7.8, hematocrit 27.5, platelets 218. IMPRESSION: 1. End-stage metastatic pancreatic carcinoma. 2. Persistent nausea and vomiting. This is likely related to metastatic disease and possible invasion of the duodenum causing partial bowel obstruction. 3. Recurrent malignant ascites secondary to malignancy. 4. Very poor performance status. RECOMMENDATIONS: 1. Continue current antiemetics. 2. Continue current pain medication regimen. 3. The plan is to try to obtain a CT scan of the abdomen to rule out a partial bowel obstruction at the duodenum level secondary to her advanced malignancy. 4. Overall prognosis is felt to be very poor. The patient is aware of her overall prognosis; however, she would like to try if possible to have a duodenal stent placed if she has a blockage related to her malignancy for palliative purposes only. We will try to obtain the CT scan to see if that is the issue, and then maybe consider referring her back to [facility] for duodenal stent placement for palliative reasons. The patient is currently on palliative care; she has palliative care at home. I do not believe she is a candidate for any further systemic chemotherapy at this point in time. The patient may consider hospice care in the future, but at this point in time she wants to wait to see if duodenal stent placement would be an option for her. Thank you very much. MMODL / IJN: [id number] /
--- NOTE | 2018-06-28 14:33 | P.PN ---
Subjective Progress Note Date: 06/28/18 Very pleasant 58-year-old female admitted for abdominal discomfort nausea vomiting. She was having dark colored emesis. GI was consulted she was started on Protonix drip. Today the patient is complaining of abdominal pain. She said that she is having continuous leakage at the site of the percutaneous tube. She also has a Pleurx cath which is not draining at this time. She said this this morning she had dark-colored emesis again. Hemoglobin is stable though Objective - Vital Signs Vital signs: Vital Signs Temp 98.8 F 06/28/18 06:02 Pulse 116 H 06/28/18 06:02 Resp 16 06/28/18 06:02 BP 90/61 06/28/18 06:02 Pulse Ox 99 06/28/18 06:02 Intake & Output 06/27/18 06/28/18 06/28/18 18:59 06:59 18:59 Intake Total 640 20 Output Total 550 1175 Balance 90 -1175 20 Weight 45.359 kg 52 kg Intake: Oral 640 20 Output: Drainage 100 625 Abdomen 100 625 Urine 200 200 Emesis 350 Other 250 Other: Voiding Method Toilet Toilet Toilet # Voids 1 - Exam On exam, alert and oriented x3. HEENT: Conjunctivae normal. eyes normal. NECK: No JVD. No thyroid enlargement. No LNs CARDIOVASCULAR: S1, S2 muffled. No murmur RESPIRATION: Breath sounds diminished in the bases. No rhonchi or crackles. No bronchial breathing. ABDOMEN: Soft, tenderness appreciated. She has an ostomy bag draining bilious fluid. Pleurx cath not connected and not draining. LEGS: No edema. no swelling NERVOUS SYSTEM: Cranial N 2-12 grossly normal. Moves all 4 limbs. No focal deficits. No sensory deficit. No signs of cerebellar dysfucntion. Skin: no ulcer no rash - Labs CBC & Chem 7: 06/28/18 07:30 06/27/18 08:19 Labs: Abnormal Lab Results - Last 24 Hours (Table) 06/27/18 06/27/18 06/27/18 Range/Units 17:23 20:45 22:04 RBC 3.63 L (3.80-5.40) m/uL Hgb 8.1 L (11.4-16.0) gm/dL Hct 27.8 L (34.0-46.0) % MCV 76.6 L (80.0-100.0) fL MCH 22.2 L (25.0-35.0) pg MCHC 29.0 L (31.0-37.0) g/dL RDW 16.8 H (11.5-15.5) % POC Glucose (mg/dL) 163 H 128 H (75-99) mg/dL 06/28/18 06/28/18 06/28/18 Range/Units 06:57 07:30 11:56 RBC 3.48 L (3.80-5.40) m/uL Hgb 7.8 L (11.4-16.0) gm/dL Hct 27.5 L (34.0-46.0) % MCV 78.9 L (80.0-100.0) fL MCH 22.3 L (25.0-35.0) pg MCHC 28.3 L (31.0-37.0) g/dL RDW 16.8 H (11.5-15.5) % POC Glucose (mg/dL) 274 H 277 H (75-99) mg/dL Assessment and Plan Assessment: - GI bleed - Nausea vomiting - History of metastatic primary cancer status post chemo - History of stent placement in the common bile duct status post ERCP 4-5 weeks ago - Ascites Plan - We will continue Protonix - She will be going for a computed tomography scan of the abdomen pelvis for continued abdominal pain - We'll resume home medications for now - We'll monitor hemoglobin - DVT and GI prophylaxis - We will order for lab work in the morning - We'll follow up with the patient Time with Patient: Greater than 30
--- NOTE | 2018-06-28 15:42 | CT ---
EXAMINATION TYPE: CT abdomen pelvis w con DATE OF EXAM: 06/28/2018 COMPARISON: 11/15/2017 HISTORY: epigastric BLQ quadrant pain CT DLP: 261.4 mGycm Automated exposure control for dose reduction was used. TECHNIQUE: Helical acquisition of images was performed from the lung bases through the pelvis. CONTRAST: Performed without Oral Contrast and with IV Contrast, patient injected with 60 mL of Isovue 300. FINDINGS: There are mild emphysematous changes at the lung bases. Heart size is normal. There is no pericardial effusion. There is small hiatal hernia. There are multiple low-density foci throughout the liver that measure up to 1.5 cm. There is a biliar y stent. Gallbladder appears normal. Bile ducts are not dilated. Spleen appears normal. Stomach is so mewhat dilated with fluid. There is bulkiness of the pancreatic head. There are small amount of air i n the biliary tree. Intrahepatic bile ducts do not appear dilated. The kidneys show satisfactory contrast opacification. There is no hydronephrosis. There is mild ascit es. There is a percutaneous peritoneal catheter in the lower abdomen. Uterus appears normal. There is no pelvic mass. There is no sign of a bowel obstruction. There is no evidence of pneumoperitoneum. I see no focal bone destruction. There is mild compression fractures in the lumbar spine at L2 and L3 and L4. IMPRESSION: MULTIPLE LOW-DENSITY SMALL FOCI IN THE LIVER CONSISTENT WITH METASTATIC DISEASE IS A CHANGE COMPARED TO LAST CT SCAN. BILIARY STENT NOTED. NO SIGNIFICANT DILATED DUCTS. DILATED STOMACH CONSISTENT WITH GASTRIC OUTLET OBSTRUCTION. THERE COULD BE TUMOR INVOLVEMENT OF THE D UODENUM RESULTING OBSTRUCTION. ENLARGEMENT OF THE PANCREATIC HEAD CONSISTENT WITH TUMOR. THIS IS A CH JUNI COMPARED TO LAST EXAM. THERE IS NEW MODERATE ASCITES COMPARED TO OLD EXAM. Mild osteoporotic type compression fractures of L2 and L3 and L4 compared to old exam.
[2018-06-28 16:46] LABS: Glucose,Whole Blood 94 mg/dL (75-99)
[2018-06-28 20:49] LABS: Glucose,Whole Blood 197 mg/dL (75-99)
[2018-06-28] MEDS: LATANOPROST 0.005% OPHTH DROPS 2.5 ML BTL BOTH EYES SCH (21:35)
[2018-06-29] MEDS: METOCLOPRAMIDE 5 MG/ML 2 ML VIAL IVP SCH ×2 (06:06→11:40)
[2018-06-29 06:41] VITALS: RESP 16
[2018-06-29 06:55] LABS: Glucose,Whole Blood 126 mg/dL (75-99)
[2018-06-29] MEDS: SYMBICORT 160-4.5 MCG INHALER INHALATION SCH (07:18)
[2018-06-29] MEDS: IPRATROPIUM 0.5 MG/2.5 ML NEBU INHALATION SCH ×3 (07:18→15:27)
[2018-06-29] MEDS: INSULIN ASPART (NovoLOG) 100 UNIT/ML VIAL SQ SCH ×2 (07:43→12:57)
[2018-06-29] MEDS: ONDANSETRON 4 MG/2 ML VIAL IVP PRN (07:54)
[2018-06-29] MEDS: ALPRAZolam 0.5 MG TAB PO PRN (07:54)
[2018-06-29] MEDS: PANTOPRAZOLE 40 MG/10 ML VIAL IV SCH (07:54)
[2018-06-29] MEDS: SODIUM CHLORIDE 0.9% 1,000 ML IV SCH (07:54)
[2018-06-29 09:23] LABS: Anisocytosis Slight; HCT 23.7 % (34.0-46.0); HGB 7.1 gm/dL (11.4-16.0); Hypochromasia Marked; MCH 23.1 pg (25.0-35.0); MCHC 29.8 g/dL (31.0-37.0); MCV 77.3 fL (80.0-100.0); Mean Platelet Volume 6.4; Microcytosis Slight; Platelet Count 161 k/uL (150-450); Poikilocytosis Moderate; RBC 3.06 m/uL (3.80-5.40); RDW 16.6 % (11.5-15.5)
[2018-06-29 09:39] LABS: Band Neutrophils % 1 %; Eosinophils # (M) 0.05 k/uL (0-0.7); Neutrophils % (M) 76 %; Total Cells Counted 100
[2018-06-29 09:41] LABS: Nucleated Red Blood Cells 1 /100 WBC (0-0)
[2018-06-29 09:42] LABS: Lymphocytes # (M) 0.58 k/uL (1.0-4.8); Monocytes # (M) 0.58 k/uL (0-1.0); WBC 5.3 k/uL (3.8-10.6)
[2018-06-29 09:45] LABS: Target Cells Present
--- NOTE | 2018-06-29 09:50 | P.PN ---
Subjective Very pleasant 58-year-old female admitted for abdominal discomfort nausea vomiting. She was having dark colored emesis. GI was consulted she was started on Protonix drip. 06/28/2018 Today the patient is complaining of abdominal pain. She said that she is having continuous leakage at the site of the percutaneous tube. She also has a Pleurx cath which is not draining at this time. She said this this morning she had dark-colored emesis again. Hemoglobin is stable though 06/29/2018 She said that she's feeling fine No more episodes of nausea vomiting Still having abdominal pain and leakage and ostomy bag Hemoglobin dropped down to 7.1 Objective - Vital Signs Vital signs: Vital Signs Temp 97.1 F L 06/29/18 06:34 Pulse 102 H 06/29/18 06:34 Resp 16 06/29/18 06:34 BP 96/63 06/29/18 06:34 Pulse Ox 100 06/29/18 06:34 Intake & Output 06/28/18 06/29/18 06/29/18 18:59 06:59 18:59 Intake Total 170 150 Output Total 100 475 Balance 70 -475 150 Weight 50.1 kg Intake: Oral 170 150 Output: Drainage 475 Abdomen 475 Urine 100 Other: Voiding Method Toilet Toilet Toilet # Voids 3 1 1 # Bowel Movements 1 - Exam On exam, alert and oriented x3. HEENT: Conjunctivae normal. eyes normal. NECK: No JVD. No thyroid enlargement. No LNs CARDIOVASCULAR: S1, S2 muffled. No murmur RESPIRATION: Breath sounds diminished in the bases. No rhonchi or crackles. No bronchial breathing. ABDOMEN: Soft, tenderness appreciated. She has an ostomy bag draining bilious fluid. Pleurx cath not connected and not draining. LEGS: No edema. no swelling NERVOUS SYSTEM: Cranial N 2-12 grossly normal. Moves all 4 limbs. No focal deficits. No sensory deficit. No signs of cerebellar dysfucntion. Skin: no ulcer no rash - Labs CBC & Chem 7: 06/29/18 08:56 06/27/18 08:19 Labs: Abnormal Lab Results - Last 24 Hours (Table) 06/28/18 06/28/18 06/28/18 Range/Units 07:30 11:56 20:48 RBC (3.80-5.40) m/uL Hgb (11.4-16.0) gm/dL Hct (34.0-46.0) % MCV (80.0-100.0) fL MCH (25.0-35.0) pg MCHC (31.0-37.0) g/dL RDW (11.5-15.5) % POC Glucose (mg/dL) 277 H 197 H (75-99) mg/dL CA 19-9 Antigen 6577.4 H (0.0-34.9) U/mL 06/29/18 06/29/18 Range/Units 06:53 08:56 RBC 3.06 L (3.80-5.40) m/uL Hgb 7.1 L (11.4-16.0) gm/dL Hct 23.7 L (34.0-46.0) % MCV 77.3 L (80.0-100.0) fL MCH 23.1 L (25.0-35.0) pg MCHC 29.8 L (31.0-37.0) g/dL RDW 16.6 H (11.5-15.5) % POC Glucose (mg/dL) 126 H (75-99) mg/dL CA 19-9 Antigen (0.0-34.9) U/mL Assessment and Plan Assessment: - GI bleed - Nausea vomiting - History of metastatic primary cancer status post chemo - History of stent placement in the common bile duct status post ERCP 4-5 weeks ago - Ascites Plan - Continue the Protonix drip for now - Hemoglobin low at 7.1 we'll monitor hemoglobin every 8 hours. Will probably need transfusion - Computed tomography scan shows gastric outlet obstruction due to duodenal obstruction secondary to cancer. CT also shows moderate ascites - I will suggest the patient be transferred to [facility] so that she can have the duodenal stent placement. She also need to be monitored in terms of her hemoglobin. Patient wants to go home for a few days and wants to make an appointment with GI as an outpatient. - We'll continue to monitor the patient. Time with Patient: Greater than 30
[2018-06-29] MEDS: MORPHINE SULFATE 4 MG/ML SYRINGE IV PRN (11:41)
[2018-06-29 12:18] LABS: Glucose,Whole Blood 240 mg/dL (75-99)
[2018-06-29 13:54] VITALS: BP 95/60; PULSE 114; TEMP 97.3
--- NOTE | 2018-06-29 13:58 | PN ---
PROGRESS NOTE DATE OF SERVICE: June 29, 2018 Patient is a 58-year-old pleasant white female with metastatic pancreatic cancer diagnosed 2 years ago presently undergoing chemotherapy which is on hold for the last 2 months, presents to the hospital with nausea, vomiting, coffee-grounds emesis. She had a CT of the abdomen and pelvis done yesterday that revealed evidence of duodenal obstruction with gastric distention and evidence of pancreatic mass. Surprisingly, after the CT scan, the patient started feeling better. In fact, she was on a low-fat diet and tolerating it well. She, this morning, says her nausea is much improved. Did not have any emesis for the last 24 hours. She does complain of abdominal distention. PHYSICAL EXAMINATION: She appears comfortable. No apparent distress. VITAL SIGNS: Stable. Blood pressure is a 78/53, pulse rate 106, temperature 98.2. HEENT examination unremarkable. Conjunctivae pink. Sclerae anicteric. Oral cavity no lesions. Neck no jugular venous distention or lymph node enlargement. Chest was clear to auscultation. HEART: Regular rate and rhythm. ABDOMEN: Soft. Bowel sounds are positive. No organomegaly. The abdomen was slightly distended. There was a colostomy bag in the epigastric area at the site of the previous PTC which was draining bilious liquid. Extremities: No pedal edema. NEUROLOGIC: Alert and oriented x3. No focal deficits. LABS: From today WBC 5.3, hemoglobin 7.1, platelets are 161. IMPRESSION: 1. Nausea and vomiting, and coffee-grounds emesis of [address] of the abdomen showed evidence of gastric distention with possible duodenal obstruction related to the pancreatic tumor. 2. Moderate cystitis status post PleurX catheter placement. 3. Metastatic pancreatic cancer diagnosed 3 years ago, undergoing chemotherapy which is on hold since May of this year. 4. Biliary stent placement for obstructive jaundice at [facility] in March of 2018. RECOMMENDATIONS: Discussed with the patient as well as the family who is at the bedside about the CT scan findings that showed evidence of duodenal obstruction probably related to extrinsic compression from the tumor base. Even though the nausea vomiting is improving, I did recommend that she be transferred to [facility] for further management of and she is agreeable to it. I discussed with for transfer to endoscopic at [facility]. Thank you for this consultation. MMODL / IJN: [id number] /
--- NOTE | 2018-06-29 15:05 | P.DS ---
Providers Date of admission: 06/27/18 14:32 Expected date of discharge: 06/29/18 Attending physician: David Desouza Consults: 06/26/18 20:10 Consult Physician Urgent Consulting Provider: Johnnie Carrera Consult Reason/Comments: Oncological care Do you want consulting provider notified?: Yes Consult Physician Urgent Consulting Provider: Isabella Menendez Consult Reason/Comments: eval for gi hemorrhage, pancreatic ca Do you want consulting provider notified?: Yes Primary care physician: David Desouza Hospital Course: Very pleasant 89-year-old female comes into the ER for abdominal discomfort nausea vomiting. She was also having dark-colored emesis. GI was consulted and so was oncology per she has a history of primary cancer that she had a recent stent placement in the bilateral duct and she has leakage from the site of the previous percutaneous drain. She also has a separate Pleurx cath which is not hooked. Her hemoglobin remained in the 7 range. Oncology order for computed tomography scan of the abdomen which showed gastric outlet obstruction also moderate ascites. It was recommended that she be transferred to [facility] for duodenal stent placement. Patient says that she already follows with GI at [facility] and they know about her. Spoke to the on-call hospitalist who gracefully accepted the transfer. Patient will does be transferred to [facility] Patient Condition at Discharge: Fair Plan - Discharge Summary New Discharge Prescriptions: Continue Tiotropium 18 Mcg/Puff [Spiriva] 1 cap INHALATION RT-DAILY Albuterol Sulfate [Proair Hfa] 1 - 2 puff INHALATION RT-Q6H PRN PRN Reason: Shortness Of Breath ALPRAZolam [Xanax] 0.5 mg PO Q8HR PRN PRN Reason: Anxiety Omeprazole [PriLOSEC] 40 mg PO HS Mometasone/Formoterol [Dulera 200 Mcg/5 Mcg Inhaler] 2 puff INHALATION RT-BID metFORMIN HCL 1,000 mg PO BID LORazepam [Ativan] 1 mg PO TID PRN PRN Reason: Anxiety Ondansetron HCl [Zofran] 8 mg PO TID PRN PRN Reason: Nausea Latanoprost Ophth [Xalatan 0.005%] 1 drops BOTH EYES HS HYDROcodone/APAP 10-325MG [[place] 10-325] 1 tab PO Q6HR PRN PRN Reason: Pain Insulin Degludec [Tresiba] 15 units SQ DAILY fentaNYL 25MCG/HR PATCH [Duragesic 25MCG/HR] 1 patch TRANSDERM Q72H Diphenox-Atrop 2.5-0.025 mg [Lomotil] 1 tab PO QID PRN PRN Reason: Diarrhea Apixaban [Eliquis] 5 mg PO BID Discharge Medication List ALPRAZolam [Xanax] 0.5 mg PO Q8HR PRN 05/05/15 [History] Albuterol Sulfate [Proair Hfa] 1 - 2 puff INHALATION RT-Q6H PRN 05/05/15 [ History] Tiotropium 18 Mcg/Puff [Spiriva] 1 cap INHALATION RT-DAILY 05/05/15 [History] Mometasone/Formoterol [Dulera 200 Mcg/5 Mcg Inhaler] 2 puff INHALATION RT-BID [History] Omeprazole [PriLOSEC] 40 mg PO HS 05/06/15 [History] LORazepam [Ativan] 1 mg PO TID PRN 04/15/17 [History] Ondansetron HCl [Zofran] 8 mg PO TID PRN 04/15/17 [History] metFORMIN HCL 1,000 mg PO BID 04/15/17 [History] Latanoprost Ophth [Xalatan 0.005%] 1 drops BOTH EYES HS 11/15/17 [History] Apixaban [Eliquis] 5 mg PO BID 06/26/18 [History] Diphenox-Atrop 2.5-0.025 mg [Lomotil] 1 tab PO QID PRN 06/26/18 [History] HYDROcodone/APAP 10-325MG [[place] 10-325] 1 tab PO Q6HR PRN 06/26/18 [History] Insulin Degludec [Tresiba] 15 units SQ DAILY 06/26/18 [History] fentaNYL 25MCG/HR PATCH [Duragesic 25MCG/HR] 1 patch TRANSDERM Q72H 06/26/18 [ History] Follow up Appointment(s)/Referral(s): David Desouza DO [Primary Care Provider] - 1-2 days Care Plan Goals (MU): Transfer the patient to [facility] when bed available Discharge Disposition: OTHER INSTITUTION NOT DEFINED
== END 2018-06-29 16:07 | disposition short-term general hospital (02) | DRG 381 ==
LOC: EC 17:03 → 4MS4W 20:10 → OBSVTOIN 06-27 14:32
PROVIDERS: ADMIT Family Medicine; ATTEND Family Medicine
DX: K31.1 Adult hypertrophic pyloric stenosis (principal); R18.0 Malignant ascites; K31.5 Obstruction of duodenum; R64 Cachexia; K92.0 Hematemesis; C78.7 Secondary malignant neoplasm of liver and intrahepatic bile duct; Z68.1 Body mass index [BMI] 19.9 or less, adult; C25.0 Malignant neoplasm of head of pancreas; N30.90 Cystitis, unspecified without hematuria; K21.9 Gastro-esophageal reflux disease without esophagitis; J44.9 Chronic obstructive pulmonary disease, unspecified; E11.9 Type 2 diabetes mellitus without complications; F41.9 Anxiety disorder, unspecified; D64.9 Anemia, unspecified; Z79.51 Long term (current) use of inhaled steroids; Z79.01 Long term (current) use of anticoagulants; Z79.4 Long term (current) use of insulin; Z79.899 Other long term (current) drug therapy; Z88.8 Allergy status to other drugs, medicaments and biological substances; Z92.21 Personal history of antineoplastic chemotherapy; Z87.891 Personal history of nicotine dependence; Z92.3 Personal history of irradiation; Z93.4 Other artificial openings of gastrointestinal tract status; Z82.5 Family history of asthma and other chronic lower respiratory diseases; Z80.0 Family history of malignant neoplasm of digestive organs; Z83.49 Family history of other endocrine, nutritional and metabolic diseases; Z81.8 Family history of other mental and behavioral disorders
CPT/HCPCS: 36415; 74018; 74177; 80053; 81001; 82150; 82271; 83690; 85025; 85027; 85610; 85730; 86301; 96361; 96374; 96375; 96376; 99285